=== PATIENT | female | born 1950 | race Caucasian/White ===

== ENCOUNTER 2024-04-13 16:45 | Inpatient (IN) ==
[2024-04-13] MEDS: dilTIAZem HCl 5 MG/ML 5 ML VIAL IV STA (17:22)
[2024-04-13] MEDS: SODIUM CHLORIDE 0.9% 1,000 ML IV ONE (17:22)
--- NOTE | 2024-04-13 17:22 | Emergency Department Note ---
Impression & Plan Atrial fibrillation with RVR ADMIT ED Provider Note HPI: History obtained from patient and grandson at the bedside. The patient is a 74-year-old female with history of atrial fibrillation, currently anticoagulated on Eliquis, presents the emergency department with a chief complaint of shortness of breath for the past 2 days. Patient states that she has been more fatigued recently, she states this occurs with minimal exertion. Patient states she does not have any chest pain but she does feel short of breath. On arrival here to the ED the patient's heart rate is elevated in the 160s and appears consistent with atrial fibrillation with RVR on the monitor. Patient states she does not think she took her morning medications. Patient is otherwise hemodynamically stable on arrival with blood pressure 150/91. ROS: - Per HPI Differential Diagnosis: Arrhythmia to include SVT, atrial fibrillation with RVR, WPW, ventricular tachycardia, ACS, PE, sepsis, amongst other potential pathologies. *Outpatient medications and allergy history reviewed. 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 Lab work shows no leukocytosis, hemoglobin is normal, platelet count is normal, CMP does not show any critical electrolyte abnormalities, glucose is elevated at 504 however there is no elevation of anion gap, serum bicarbonate level is normal, bilirubin is elevated at 1.6, AST is 168, ALT is 393, alk phos is elevated at 624. Patient does not have any abdominal pain, she denies any recent nausea or vomiting. BNP is also elevated at 578. Troponin is mildly elevated at 20.8 which I suspect is related to demand ischemia given tachycardia. Patient was given IV diltiazem and IV Lopressor with only minimal improvement in her heart rate into the 120s. Blood pressure remained stable. Patient was placed on IV diltiazem drip and given a second dose of Lopressor without much improvement in heart rate. She remains otherwise well-appearing on my reassessment, given her nonspecific transaminitis and elevated bilirubin CT imaging of the abdomen pelvis was obtained that shows evidence of hepatic steatosis without any acute surgical process. There also appears to be some developing cirrhosis. Chest x-ray per my interpretation shows nonspecific basilar opacity on the right side, patient's does exhibit a pattern of slight fluid overload and BNP is elevated at 578. Given diltiazem drip initiation with stable blood pressure I opted to avoid diuresis at this time as the patient has stable blood pressure and is saturating well on room air without increased work of breathing. I discussed all of the above findings with the patient and her son at the bedside. He is an RN and he expressed an understanding of the above. He did show me the patient's discharge paperwork from [facility] in January, at that time she did have a workup for transaminitis at that time that showed similar findings of hepatic steatosis. Doubt any other acute process that would be a surgical concern at this time. CT imaging does not suggest an acute cholecystitis, in addition, patient's Brennan sign is negative on exam. [facility] hospitalist service was consulted for admission. Patient's heart rate is in the 120s on my reassessment prior to admission, blood pressure remained stable, patient remains saturating well on room air. Case was discussed with the on-call admitting resident. Patient was placed for admission in stable condition. Consultants/Discussions held with other healthcare providers: -Hospitalist, Dr. Zaldivar Disposition discussion held by myself with: -Patient and grandson at bedside Critical care time: 45 minutes -Management of tachyarrhythmia/atrial fibrillation with RVR requiring initiation of IV rate control medications including diltiazem and metoprolol as well as diltiazem drip initiation, time spent at the bedside, interpretation of EKG and diagnostic studies, discussion with other physicians and arrangement of admission. Diagnosis: 1. Atrial fibrillation with RVR, acute 2. Transaminitis, acute on chronic 3. Hepatic steatosis on CT imaging 4. Elevated high-sensitivity troponin level 5. Elevated BNP Disposition: Admission Eleazar Knight DO Emergency Medicine Past Med/Surg History Problem List (Updated 04/13/24 @ 23:12 by Eleazar Knight DO) Atrial fibrillation with RVR (Acute) Atelectasis HLD (hyperlipidemia) Elevated troponin Transaminitis History of breast cancer HFrEF (heart failure with reduced ejection fraction) Atrial fibrillation with RVR DM2 (diabetes mellitus, type 2) Social History Smoking Status: Never smoker Preferred Language: Kinyarwanda Feels Safe at Home: Yes Allergies Allergies Allergy/AdvReac Type Severity Reaction Status Date / Time No Known Allergies Allergy Verified 04/13/24 17:43 Home Meds Home Medications Medication Instructions Recorded Confirmed Lactobacil.acidophilus-Bifido.animalis 1 cap PO DAILY 04/13/24 04/13/24 5 billion cell sprinkle capsule (Probiotic) albuterol sulfate 90 mcg/actuation 2 puff inhalation Q6H PRN Wheezing 04/13/24 04/13/24 aerosol inhaler amlodipine 5 mg tablet 5 mg PO QAM 04/13/24 04/13/24 apixaban 5 mg tablet (Eliquis) 5 mg PO BID 04/13/24 04/13/24 atorvastatin 10 mg tablet (Lipitor) 10 mg PO HS 04/13/24 04/13/24 digoxin 250 mcg (0.25 mg) tablet 250 mcg PO QAM 04/13/24 04/13/24 empagliflozin 25 mg tablet 25 mg PO QAM 04/13/24 04/13/24 (Jardiance) furosemide 40 mg tablet (Lasix) 40 mg PO QAM 04/13/24 04/13/24 glimepiride 4 mg tablet 4 mg PO QAM 04/13/24 04/13/24 lisinopril 20 mg tablet 20 mg PO QAM 04/13/24 04/13/24 metformin 500 mg tablet 500 mg PO BIDM 04/13/24 04/13/24 metoprolol succinate 100 mg 100 mg PO BID 04/13/24 04/13/24 tablet,extended release 24 hr paroxetine HCl 10 mg tablet (Paxil) 10 mg PO QAM 04/13/24 04/13/24 Results & Data (ED) Vital Signs Vital Signs - 24 hr 04/13/24 16:47 04/13/24 16:50 04/13/24 17:10 Temperature 36.0 C L Temperature Source Temporal Artery Scan Pulse Rate 131 H 156 H Pulse Rate from SpO2 Sensor Pulse Rhythm Regular Respiratory Rate 20 22 Respiratory Effort / Characteristics Non-Labored Spontaneous Respiratory Depth Normal Blood Pressure 150/91 H Blood Pressure Mean 110 Pulse Oximetry 95 98 Oxygen Delivery Method Room Air Room Air Room Air Sepsis Recent Fever Within 48 Hours No Sepsis New/Unexplained Change in Mental Status No Sepsis Action Taken by Nursing No Action Required Pulse Oximetry Post Tiitration 95 04/13/24 17:18 04/13/24 17:18 04/13/24 17:23 Temperature Temperature Source Pulse Rate 163 H 160 H 148 H Pulse Rate from SpO2 Sensor 144 H 146 H Pulse Rhythm Respiratory Rate 28 H 20 Respiratory Effort / Characteristics Respiratory Depth Blood Pressure 121/88 121/87 Blood Pressure Mean 99 94 Pulse Oximetry 92 96 Oxygen Delivery Method Room Air Sepsis Recent Fever Within 48 Hours Sepsis New/Unexplained Change in Mental Status Sepsis Action Taken by Nursing Pulse Oximetry Post Tiitration 04/13/24 17:51 04/13/24 17:56 04/13/24 19:00 Temperature Temperature Source Pulse Rate 153 H 146 H 126 H Pulse Rate from SpO2 Sensor 147 H 138 H Pulse Rhythm Respiratory Rate 20 24 Respiratory Effort / Characteristics Respiratory Depth Blood Pressure 129/97 129/97 137/104 H Blood Pressure Mean 107 115 Pulse Oximetry 93 94 Oxygen Delivery Method Room Air Sepsis Recent Fever Within 48 Hours Sepsis New/Unexplained Change in Mental Status Sepsis Action Taken by Nursing Pulse Oximetry Post Tiitration 04/13/24 19:51 04/13/24 20:30 04/13/24 21:02 Temperature Temperature Source Pulse Rate 139 H 124 H 140 H Pulse Rate from SpO2 Sensor 135 H 128 H Pulse Rhythm Respiratory Rate 30 H 22 Respiratory Effort / Characteristics Respiratory Depth Blood Pressure 140/101 H 163/125 H 141/107 H Blood Pressure Mean 114 137 Pulse Oximetry 94 96 Oxygen Delivery Method Room Air Room Air Sepsis Recent Fever Within 48 Hours Sepsis New/Unexplained Change in Mental Status Sepsis Action Taken by Nursing Pulse Oximetry Post Tiitration 04/13/24 21:33 05/31/24 21:34 04/13/24 22:00 Temperature Temperature Source Pulse Rate 115 H 122 H 130 H Pulse Rate from SpO2 Sensor 114 H 116 H Pulse Rhythm Respiratory Rate 22 27 H Respiratory Effort / Characteristics Respiratory Depth Blood Pressure 117/82 112/94 Blood Pressure Mean 93 100 Pulse Oximetry 96 95 Oxygen Delivery Method Sepsis Recent Fever Within 48 Hours Sepsis New/Unexplained Change in Mental Status Sepsis Action Taken by Nursing Pulse Oximetry Post Tiitration 04/13/24 22:18 04/13/24 22:30 Temperature Temperature Source Pulse Rate 127 H 130 H Pulse Rate from SpO2 Sensor 114 H Pulse Rhythm Respiratory Rate 22 Respiratory Effort / Characteristics Respiratory Depth Blood Pressure 112/94 122/101 H Blood Pressure Mean 108 Pulse Oximetry 94 Oxygen Delivery Method Room Air Sepsis Recent Fever Within 48 Hours Sepsis New/Unexplained Change in Mental Status Sepsis Action Taken by Nursing Pulse Oximetry Post Tiitration Laboratory Data 04/13/24 17:20 04/13/24 17:20 Lab Results 04/13/24 04/13/24 04/13/24 Range/Units 17:20 20:04 20:06 WBC 7.59 (4.8-10.8) K/ul RBC 4.60 (4.20-5.40) M/uL Hgb 14.6 (12.0-16.0) g/dl Hct 44.6 (37.0-47.0) % MCV 97.0 (80.0-100.0) fL MCH 31.7 (25.0-34.0) pg MCHC 32.7 (32.0-36.0) g/dL RDW Std Deviation 62.3 H (36.4-46.3) fL RDW Coeff of Will 17.8 H (11.5-14.5) % Plt Count 299 (130-400) K/uL MPV 11.1 (9.4-12.4) fL Immature Gran % (Auto) 0.7 % Neut % (Auto) 73.2 % Lymph % (Auto) 14.1 % [place] % (Auto) 11.1 % Eos % (Auto) 0.5 % Baso % (Auto) 0.4 % Neut # (Auto) 5.56 (1.40-6.50) K/uL Lymph # (Auto) 1.07 L (1.20-3.40) K/uL [place] # (Auto) 0.84 H (0.11-0.59) K/uL Eos # (Auto) 0.04 (0.00-0.50) K/uL Baso # (Auto) 0.03 (0.00-0.20) K/uL Immature Gran # (Auto) 0.05 (0.01-0.20) K/uL PT 12.1 H (9.0-12.0) Seconds INR 1.1 (0.9-1.1) APTT 24 (21-31) Seconds PTT Ratio 0.9 Sodium 134 L (136-145) mmol/L Potassium 4.1 (3.5-5.1) mmol/L Chloride 100 (98-107) mmol/L Carbon Dioxide 24 (21-32) mmol/L Anion Gap 10 (3-11) BUN 17 (6-23) mg/dl Creatinine 0.90 (0.6-1.2) mg/dl Est Cr Clr Drug Dosing 61.4 ml/min Est GFR ( Amer) 73.5 ml/min Est GFR (Non-Af Amer) 63.4 ml/min BUN/Creatinine Ratio 18.9 (10-20) Glucose 504 H* (70-99(Fasting)) mg/dl POC Glucose 394 H* (70-99) mg/dl Calcium 8.7 (8.6-10.3) mg/dl Magnesium 2.0 (1.7-2.4) mg/dl Total Bilirubin 1.6 H (0.2-1.0) mg/dl AST 168 H (13-39) U/L ALT 393 H (7-52) U/L Alkaline Phosphatase 624 H (34-104) U/L Troponin I High Sens 20.8 H 19.7 H (0-14) pg/ml B-Natriuretic Peptide 578 H (0-100) pg/ml Total Protein 6.3 (6.0-8.3) gm/dl Albumin 3.6 (3.4-5.0) gm/dl Globulin 2.7 (2.5-4.0) gm/dl Albumin/Globulin Ratio 1.3 (0.9-2) TSH 3.845 (0.300-4.500) uIu/ml 04/13/24 Range/Units 22:27 WBC (4.8-10.8) K/ul RBC (4.20-5.40) M/uL Hgb (12.0-16.0) g/dl Hct (37.0-47.0) % MCV (80.0-100.0) fL MCH (25.0-34.0) pg MCHC (32.0-36.0) g/dL RDW Std Deviation (36.4-46.3) fL RDW Coeff of Will (11.5-14.5) % Plt Count (130-400) K/uL MPV (9.4-12.4) fL Immature Gran % (Auto) % Neut % (Auto) % Lymph % (Auto) % [place] % (Auto) % Eos % (Auto) % Baso % (Auto) % Neut # (Auto) (1.40-6.50) K/uL Lymph # (Auto) (1.20-3.40) K/uL [place] # (Auto) (0.11-0.59) K/uL Eos # (Auto) (0.00-0.50) K/uL Baso # (Auto) (0.00-0.20) K/uL Immature Gran # (Auto) (0.01-0.20) K/uL PT (9.0-12.0) Seconds INR (0.9-1.1) APTT (21-31) Seconds PTT Ratio Sodium (136-145) mmol/L Potassium (3.5-5.1) mmol/L Chloride (98-107) mmol/L Carbon Dioxide (21-32) mmol/L Anion Gap (3-11) BUN (6-23) mg/dl Creatinine (0.6-1.2) mg/dl Est Cr Clr Drug Dosing ml/min Est GFR ( Amer) ml/min Est GFR (Non-Af Amer) ml/min BUN/Creatinine Ratio (10-20) Glucose (70-99(Fasting)) mg/dl POC Glucose 279 H (70-99) mg/dl Calcium (8.6-10.3) mg/dl Magnesium (1.7-2.4) mg/dl Total Bilirubin (0.2-1.0) mg/dl AST (13-39) U/L ALT (7-52) U/L Alkaline Phosphatase (34-104) U/L Troponin I High Sens (0-14) pg/ml B-Natriuretic Peptide (0-100) pg/ml Total Protein (6.0-8.3) gm/dl Albumin (3.4-5.0) gm/dl Globulin (2.5-4.0) gm/dl Albumin/Globulin Ratio (0.9-2) TSH (0.300-4.500) uIu/ml Administered Medications Diltiazem HCl 125 mg/ Dextrose 125 mls @ 10 mls/hr IV .[id number] MARNIE; Protocol Stop: 05/13/24 17:44 Last Titration: 04/13/24 23:01 Dose: 10 mg/hr, 10 mls/hr Documented By: INGE Co-signed By: NIC Titration: 04/13/24 19:15 Dose: 15 mg/hr, 15 mls/hr Documented By: INGE Co-signed By: THOM Titration: 04/13/24 18:50 Dose: 10 mg/hr, 10 mls/hr Documented By: INGE Co-signed By: THOM Admin: 04/13/24 17:56 Dose: 5 mg/hr, 5 mls/hr Documented By: PRECIOUS Co-signed By: INGE Discontinued Medications Diltiazem HCl (Diltiazem Hcl 5 Mg/Ml 5 Ml Vial) Confirm Administered Dose 25 mg IV .STK-MED ONE Stop: 04/13/24 17:21 Last Admin: 04/13/24 17:24 Dose: Not Given Documented By: INGE Diltiazem HCl (Diltiazem Hcl 5 Mg/Ml 5 Ml Vial) 10 mg IV NOW STA Stop: 04/13/24 17:23 Last Admin: 04/13/24 17:22 Dose: 10 mg Documented By: INGE Co-signed By: PRECIOUS Sodium Chloride (Nss) 1,000 mls @ 999 mls/hr IV .Q1H1M ONE Stop: 04/13/24 18:12 Last Infusion: 04/13/24 19:27 Dose: Infused Documented By: Admin: 04/13/24 17:22 Dose: 999 mls/hr Documented By: INGE Insulin Human Regular (Novolin-R Insulin Per Unit Charge) 8 units IV NOW STA Stop: 04/13/24 20:01 Last Admin: 04/13/24 20:10 Dose: 8 units Documented By: INGE Co-signed By: PAVAN Ioversol (Optiray 320 100ml) 92 ml IV ONCE ONE Stop: 04/13/24 19:41 Last Admin: 04/13/24 19:42 Dose: 92 ml Documented By: YOBANY Metoprolol Tartrate (Metoprolol Tartrate 1 Mg/Ml Vial) 5 mg IV NOW STA Stop: 04/13/24 17:33 Last Admin: 04/13/24 17:56 Dose: 5 mg Documented By: PRECIOUS Metoprolol Tartrate (Metoprolol Tartrate 1 Mg/Ml Vial) 5 mg IV NOW STA Stop: 04/13/24 20:42 Last Admin: 04/13/24 21:02 Dose: 5 mg Documented By: INGE Miscellaneous (Stat Iv Infusion Titration Per Protocol) 1 each N/A NOW STA Stop: 04/13/24 17:33 Last Admin: 04/13/24 18:27 Dose: Not Given Documented By: INGE Imaging Data Radiologist's Impression: Chest X-Ray 04/13/24 16:51 XR chest 1V not portable CLINICAL HISTORY: Chest pain, nonspecific COMPARISON STUDY: No previous studies for comparison. FINDINGS: There are left axillary surgical clips. No pneumothorax or pleural effusion is present. Bilateral hilar prominence is likely due to pulmonary vessels. Patient is mildly rotated. Cardiac size is within normal limits. There is no evidence for pulmonary edema. Linear left midlung density favors atelectasis. Possible hiatal hernia. There is hazy right basilar opacity. IMPRESSION: 1. Hazy right basilar opacity. This may reflect pneumonia or atelectasis. Radiographic follow-up to ensure resolution is recommended. 2. Possible hiatal hernia. 3. Bilateral hilar prominence likely due to pulmonary vessels. This can be assessed on follow-up chest radiographs. ACT 112: Negative or not required by law. Electronically signed by: Brian Gamez M.D. 04/13/2024 6:08 PM Abdomen/Pelvis CT 04/13/24 19:10 Exam(s): CT ABDOMEN + PELVIS With Contrast IV Amt: 92 ml optiray 320 EXAM: CT Abdomen and Pelvis With Intravenous Contrast CLINICAL HISTORY: Reason for exam: Transaminitis, elevated bilirubin. TECHNIQUE: Axial computed tomography images of the abdomen and pelvis with intravenous contrast. CTDI is 27.53 mGy and DLP is 1227.03 mGy-cm. Automated exposure control was utilized for the study. A dose lowering technique was utilized adhering to the principles of ALARA. CONTRAST: Patient received 92 ml optiray 320 of IV contrast COMPARISON: None FINDINGS: Lung bases: Mild dependent atelectasis bilaterally. Pleural space: Small bilateral pleural effusions. ABDOMEN: Liver: Hepatic steatosis. Hepatomegaly. Nodular contour of the liver may represent cirrhosis. Gallbladder and bile ducts: Unremarkable. No calcified stones. No ductal dilation. Pancreas: Unremarkable. No mass. No ductal dilation. Spleen: Small splenule. Adrenals: Unremarkable. No mass. Kidneys and ureters: Probable peripelvic cysts bilaterally. No significant hydroureter or ureteral stone. Stomach and bowel: Mild diverticulosis without evidence of diverticulitis. No obstruction. PELVIS: Appendix: Normal appendix. Bladder: Unremarkable. No mass. Reproductive: Unremarkable as visualized. ABDOMEN and PELVIS: Intraperitoneal space: Small amount of ascites. No free air. Bones/joints: Degenerative changes of the spine. No acute fracture. No dislocation. Soft tissues: Body wall edema. Small fluid-containing umbilical hernia. Vasculature: Atherosclerotic changes of the vasculature. No aortic aneurysm or dissection. 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 Mild to moderate stenosis at the origin of the SMA. Lymph nodes: Unremarkable. No enlarged lymph nodes. IMPRESSION: 1. Body wall edema. 2. Small amount of ascites. 3. Small bilateral pleural effusions. 4. Hepatic steatosis. Hepatomegaly. Nodular contour of the liver may represent cirrhosis. 5. Probable peripelvic cysts bilaterally. No significant hydroureter or ureteral stone. Electronically signed by: Penny Daley M.D. 04/13/24 20:31 PM Discharge Plan Visit Data Chief Complaint: Shortness of Breath/Dyspnea Stated Complaint: A-FIB, POSSIBLE HEART FAILURE, SOB, FATIGUE ED Provider: Eleazar Knight Discharge Problem: Atrial fibrillation with RVR Forms [facility] Prescriptions Prescriptions: No Action furosemide [Lasix] 40 mg Tablet 40 mg PO QAM metformin 500 mg Tablet 500 mg PO BIDM paroxetine HCl [Paxil] 10 mg Tablet 10 mg PO QAM atorvastatin [Lipitor] 10 mg Tablet 10 mg PO HS lisinopril 20 mg Tablet 20 mg PO QAM metoprolol succinate 100 mg Tablet Extended Release 24 Hr 100 mg PO BID amlodipine 5 mg Tablet 5 mg PO QAM digoxin 250 mcg (0.25 mg) Tablet 250 mcg PO QAM glimepiride 4 mg Tablet 4 mg PO QAM Rx Instructions: administer with breakfast albuterol sulfate 90 mcg/actuation Hfa Aerosol Inhaler 2 puff INHALATION Q6H PRN (Reason: Wheezing) Eliquis 5 mg Tablet 5 mg PO BID Probiotic 5 billion cell Capsule, Sprinkle 1 cap PO DAILY Jardiance 25 mg Tablet 25 mg PO QAM Referrals Referrals: PCP,NO [Physician] -
[2024-04-13] MEDS: dilTIAZem HCl 5 MG/ML 5 ML VIAL IV ONE (17:24)
[2024-04-13 17:50] LABS: Basophils # (auto) 0.03 K/uL (0.00-0.20); Basophils % (auto) 0.4 %; Eosinophils # (auto) 0.04 K/uL (0.00-0.50); Eosinophils % (auto) 0.5 %; Hematocrit (blood only) 44.6 % (37.0-47.0); Hemoglobin 14.6 g/dl (12.0-16.0); Immature Granulocytes # (auto) 0.05 K/uL (0.01-0.20); Immature Granulocytes % (auto) 0.7 %; Lymphocytes # (auto) 1.07 K/uL (1.20-3.40); Lymphocytes % (auto) 14.1 %; Mean Corpuscular Hemoglobin 31.7 pg (25.0-34.0); Mean Corpuscular Hgb Conc 32.7 g/dL (32.0-36.0); Mean Platelet Volume 11.1 fL (9.4-12.4); Monocytes # (auto) 0.84 K/uL (0.11-0.59); Monocytes % (auto) 11.1 %; Neutrophils # (auto) 5.56 K/uL (1.40-6.50); Neutrophils % (auto) 73.2 %; Platelet Count 299 K/uL (130-400); RDW Coefficient of Variation 17.8 % (11.5-14.5); RDW Standard Deviation 62.3 fL (36.4-46.3); White Blood Count 7.59 K/ul (4.8-10.8)
[2024-04-13] MEDS: dilTIAZem HCL 125 MG in DEXTROSE 5% 100 ML IV SCH (17:56)
[2024-04-13] MEDS: METOPROLOL TARTRATE 1 MG/ML VIAL IV STA ×2 (17:56→21:02)
--- NOTE | 2024-04-13 18:09 | XRay Report ---
XR chest 1V not portable CLINICAL HISTORY: Chest pain, nonspecific COMPARISON STUDY: No previous studies for comparison. FINDINGS: There are left axillary surgical clips. No pneumothorax or pleural effusion is present. Demetris ateral hilar prominence is likely due to pulmonary vessels. Patient is mildly rotated. Cardiac size i s within normal limits. There is no evidence for pulmonary edema. Linear left midlung density favors atelectasis. Possible hiatal hernia. There is hazy right basilar opacity. IMPRESSION: 1. Hazy right basilar opacity. This may reflect pneumonia or atelectasis. Radiographic follow-up to e nsure resolution is recommended. 2. Possible hiatal hernia. 3. Bilateral hilar prominence likely due to pulmonary vessels. This can be assessed on follow-up ches t radiographs. ACT 112: Negative or not required by law. Electronically signed by: Brian Gamez M.D. 04/13/2024 6:08 PM
[2024-04-13 18:14] LABS: INR 1.1 (0.9-1.1); Partial Thromboplastin Ratio 0.9; Partial Thromboplastin Time 24 Seconds (21-31); Prothrombin Time 12.1 Seconds (9.0-12.0)
[2024-04-13 18:25] LABS: Albumin Globulin Ratio 1.3 (0.9-2); Albumin Level 3.6 gm/dl (3.4-5.0); BUN Creatinine Ratio 18.9 (10-20); Bilirubin,Total 1.6 mg/dl (0.2-1.0); Calcium 8.7 mg/dl (8.6-10.3); Creatinine Clr Calc Pharmacy 61.4 ml/min; Est GFR (African American) 73.5 ml/min; Est GFR (Non-African American) 63.4 ml/min; Globulin 2.7 gm/dl (2.5-4.0); Potassium 4.1 mmol/L (3.5-5.1); Total Protein 6.3 gm/dl (6.0-8.3); Troponin I High Sensitivity 20.8 pg/ml (0-14)
[2024-04-13] MEDS: STAT IV Infusion **Titration per Protocol STA (18:27)
[2024-04-13 18:28] LABS: Thyroid Stimulating Hormone 3.845 uIu/ml (0.300-4.500)
[2024-04-13] MEDS: OPTIRAY 320 100ml IV ONE (19:42)
[2024-04-13] MEDS: NovoLIN-R INSULIN PER UNIT CHARGE IV STA (20:10)
--- NOTE | 2024-04-13 20:31 | CT Scan Report ---
Exam(s): CT ABDOMEN + PELVIS With Contrast IV Amt: 92 ml optiray 320 EXAM: CT Abdomen and Pelvis With Intravenous Contrast CLINICAL HISTORY: Reason for exam: Transaminitis, elevated bilirubin. TECHNIQUE: Axial computed tomography images of the abdomen and pelvis with intravenous contrast. CTDI is 27.53 mGy and DLP is 1227.03 mGy-cm. Automated exposure control was utilized for the study. A dose lowering technique was utilized adhering to the principles of ALARA. CONTRAST: Patient received 92 ml optiray 320 of IV contrast COMPARISON: None FINDINGS: Lung bases: Mild dependent atelectasis bilaterally. Pleural space: Small bilateral pleural effusions. ABDOMEN: Liver: Hepatic steatosis. Hepatomegaly. Nodular contour of the liver may represent cirrhosis. Gallbladder and bile ducts: Unremarkable. No calcified stones. No ductal dilation. Pancreas: Unremarkable. No mass. No ductal dilation. Spleen: Small splenule. Adrenals: Unremarkable. No mass. Kidneys and ureters: Probable peripelvic cysts bilaterally. No significant hydroureter or ureteral stone. Stomach and bowel: Mild diverticulosis without evidence of diverticulitis. No obstruction. PELVIS: Appendix: Normal appendix. Bladder: Unremarkable. No mass. Reproductive: Unremarkable as visualized. ABDOMEN and PELVIS: Intraperitoneal space: Small amount of ascites. No free air. Bones/joints: Degenerative changes of the spine. No acute fracture. No dislocation. Soft tissues: Body wall edema. Small fluid-containing umbilical hernia. Vasculature: Atherosclerotic changes of the vasculature. No aortic aneurysm or dissection. 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 Mild to moderate stenosis at the origin of the SMA. Lymph nodes: Unremarkable. No enlarged lymph nodes. IMPRESSION: 1. Body wall edema. 2. Small amount of ascites. 3. Small bilateral pleural effusions. 4. Hepatic steatosis. Hepatomegaly. Nodular contour of the liver may represent cirrhosis. 5. Probable peripelvic cysts bilaterally. No significant hydroureter or ureteral stone. Electronically signed by: Penny Daley M.D. 04/13/24 20:31 PM
--- NOTE | 2024-04-13 21:34 | History & Physical Report ---
Date of Service April 13, 2024 Assessment & Plan (1) Atrial fibrillation with RVR: Plan: - Afib with RVR with rates in the 160s on presentation - On Cardizem gtt with rates still in 120s/130s plan to transition to amiodarone gtt - hold amlodipine, lisinopril - continue digoxin, check level - continue metoprolol - continue Eliquis (2) HFrEF (heart failure with reduced ejection fraction): Plan: - Echo from 01/2024 initially with EF 30-35%. Repeat after improvement in hearts rates with EF= 40-45%, LA thickening - Plan to repeat TTE - elevated BNP -hold lisinopril as per above - continue metoprolol, Jardiance - Pleural effusions on CT; plan for diurese with IV Lasix once HRs controlled and BPs can handle (3) DM2 (diabetes mellitus, type 2): Plan: - hemoglobin a1c= 11 01/2024; repeat - hold glimepiride, metformin - continue Jardiance - SSI while IP (4) Transaminitis: Plan: - transaminitis noted during admission 01/2024 at [facility]; AST= 31, ALT= 108, Alk Phos= 176, T Bili= 1 - On admission AST= 168, ALT= 393, Alk Phos= 624, t bili= 1.6 - CT A&P with Hepatic steatosis. Hepatomegaly. Nodular contour of the liver may represent cirrhosis - ggt pending (5) Elevated troponin: Plan: - troponin 20-> 19 - asymptomatic and without ischemic changes on EKG - likely demand ischemia (6) HLD (hyperlipidemia): Plan: - continue statin, repeat lipid panel (7) Atelectasis: Plan: - CXR with concern for opacity - CT with mild depended atelectasis/small B/L pleural effusions - incentive spirometry - pro leonid pending, no signs of acute infection defer antibiotics at present Plan Diet: DM2, Heart Healthy Dispo: PCU Code: FUll VTE Prophylaxis: Eliquis History of Present Illness Primary Care Provider: Leno Murillo PA-C 74 year old female with a past medical history of breast cancer (completed treatment 11/2023), paroxysmal afib, DM2 presenting with afib with RVR. Noted increased dyspnea over the past 2 days. Son noted LE edema yesterday. Denies chest pain, nausea/vomiting. Notes that she believes that she forgot to take her medications this morning. Admitted at [facility] for afib with RVR. Was started on IV Lopressor and Cardizem gtt, unsuccessful in controlling rates. DCCV x 4, briefly converted to NSR but then back to afib RVR. Started on amiodarone gtt and converted to oral dosing. Adding digoxin and metoprolol. Echo initially with EF 30-35%. Repeat after improvement in hearts rates with EF= 40-45%, LA thickening and recommenced OP cardiac MRI to r/u amyloidosis. Ultimately she was discharged on: a tapering dose of amiodarone 400mg BID x 2 weeks, 200mg BID x 2 weeks, 200mg daily there forward. Digoxin 250mcg daily. Metoprolol succinate 100mg BID. Eliquis 5mg BID. Is supposed to f/u with Dr. Rosas, EP as an OP for consideration of ablation. In the ED: Was given 5mg IV Lopressor x 2, Cardizem 10mg and started on Cardizem gtt. Allergies Allergy/AdvReac Type Severity Reaction Status Date / Time No Known Allergies Allergy Verified 04/13/24 17:43 Home Medications Medication Instructions Recorded Confirmed Type Lactobacil.acidophilus-Bifido.animalis 1 cap PO DAILY 04/13/24 04/13/24 History 5 billion cell sprinkle capsule (Probiotic) albuterol sulfate 90 mcg/actuation 2 puff inhalation Q6H PRN Wheezing 04/13/24 04/13/24 History aerosol inhaler amlodipine 5 mg tablet 5 mg PO QAM 04/13/24 04/13/24 History apixaban 5 mg tablet (Eliquis) 5 mg PO BID 04/13/24 04/13/24 History atorvastatin 10 mg tablet (Lipitor) 10 mg PO HS 04/13/24 04/13/24 History digoxin 250 mcg (0.25 mg) tablet 250 mcg PO QAM 04/13/24 04/13/24 History empagliflozin 25 mg tablet 25 mg PO QAM 04/13/24 04/13/24 History (Jardiance) furosemide 40 mg tablet (Lasix) 40 mg PO QAM 04/13/24 04/13/24 History glimepiride 4 mg tablet 4 mg PO QAM 04/13/24 04/13/24 History lisinopril 20 mg tablet 20 mg PO QAM 04/13/24 04/13/24 History metformin 500 mg tablet 500 mg PO BIDM 04/13/24 04/13/24 History metoprolol succinate 100 mg 100 mg PO BID 04/13/24 04/13/24 History tablet,extended release 24 hr paroxetine HCl 10 mg tablet (Paxil) 10 mg PO QAM 04/13/24 04/13/24 History Past Med/Surg History Problem List (Updated 04/13/24 @ 23:12 by Eleazar Knight, DO) Atrial fibrillation with RVR (Acute) Atelectasis HLD (hyperlipidemia) Elevated troponin Transaminitis History of breast cancer HFrEF (heart failure with reduced ejection fraction) Atrial fibrillation with RVR DM2 (diabetes mellitus, type 2) Social History Smoking Status: Never smoker Hx Alcohol Use: Yes Hx Substance Use: No Preferred Language: Azerbaijani Communication Ability: Effective Manager Primary Care Required: No Beliefs That Will Affect Care: None Current Living Situation: Alone Feels Safe at Home: Yes Review of Systems Review of Systems: As per above Physical Exam Physical Exam: Constitutional: well-appearing, no acute distress HEENT: NCAT, no conjunctival injection CV: irregular rate and rhythm, no murmur appreciated, extremities well-perfused, no LE edema Resp: CTABL, no wheezes/rales/rhonchi appreciated, no increased work of breathing GI: soft, nondistended, nontender MSK: no gross deformities appreciated Skin: warm, dry, no rash appreciated Neuro: alert, oriented, no focal neurologic deficit appreciated Results & Data Results & Data Vital Signs (Past 12 Hours) Vital Signs Temp Pulse Resp BP Pulse Ox O2 Del Method 04/13/24 21:02 140 H 141/107 H 04/13/24 20:30 124 H 22 163/125 H 96 Room Air 04/13/24 19:51 139 H 30 H 140/101 H 94 Room Air 04/13/24 19:00 126 H 24 137/104 H 94 Room Air 04/13/24 17:56 146 H 129/97 04/13/24 17:51 153 H 20 129/97 93 04/13/24 17:23 148 H 20 121/87 96 04/13/24 17:18 160 H 28 H 121/88 92 Room Air 04/13/24 17:18 163 H 04/13/24 17:10 156 H 22 98 Room Air 04/13/24 16:50 Room Air 04/13/24 16:47 36.0 C L 131 H 20 150/91 H 95 Room Air Code Status & VTE Plan VTE Prophylaxis Plan VTE Prophylaxis will be ordered: Yes Supervising Physician Co-Signing Physician Notes Attending addendum: I have physically seen this patient, have supervised the medical residents activities, and agree with the H&P unless as otherwise noted. Assessment and Plan: Atrial fibrillation with RVR/HFpEF The patient will be admitted to telemetry for serial cardiac enzymes, serial EKG's, cardiac rhythm monitoring and a 2-D echocardiogram with Dopplers. Initial heart rate in the 160s Maximum improvement on the Cardizem drip begun by the ED in the 120s-130s Patient will be converted to amiodarone bolus/drip per protocol Continue digoxin, add dig level to labs Continue metoprolol and Eliquis Hold amlodipine and lisinopril Continue Jardiance IV furosemide as noted Diabetes mellitus- Uncontrolled Hold glimepiride and metformin while inpatient Continue Jardiance Placed on Accu-Cheks with NovoLog SSI Transaminitis- Worsened from recent laboratories of 02/04 at [facility] May be secondary to poor diabetic control and/or hepatic congestion CT abdomen pelvis with hepatic steatosis, hepatomegaly and nodular contour of liver suggestive of cirrhosis Continue to monitor liver function test daily Resident Activity Tracking Resident Involvement: Resident Care Provided Care Provided: Adult Hospital Medicine
[2024-04-13] MEDS ORDERED: AMIODARONE IV BOLUS & DRIP IV STA (23:01)
[2024-04-13] MEDS ORDERED: STAT IV Infusion **Titration per Protocol STA (23:01)
[2024-04-13] MEDS ORDERED: 0.2 MICRON FILTER SET 1 EACH IV STA (23:01)
[2024-04-14] MEDS: AMIODARONE / D5W 150 MG/100 ML BAG IV STA ×2 (00:20→05:25)
[2024-04-14] MEDS: AMIODARONE / D5W 360 MG/200 ML BAG IV ONE (00:35)
[2024-04-14] MEDS ORDERED: ALBUTEROL HFA 8 GM INHALER INH PRN (02:26)
[2024-04-14] MEDS ORDERED: GLUCAGON FOR INJ 1 MG VIAL SQ PRN (02:26)
[2024-04-14] MEDS ORDERED: DEXTROSE 50% 50 ML SYRINGE IV PRN (02:26)
[2024-04-14] MEDS ORDERED: GLUCOSE 10 TAB/TUBE PO PRN (02:26)
[2024-04-14] MEDS ORDERED: GLUCOSE 40% GEL 15 GM TUBE PO PRN (02:26)
[2024-04-14] MEDS ORDERED: CARBOHYDRATES FOR HYPOGLYCEMIA PO PRN (02:26)
[2024-04-14] MEDS: APIXABAN 5 MG TABLET PO SCH (04:39)
[2024-04-14] MEDS ORDERED: 0.2 MICRON FILTER SET 1 EACH IV ONE (04:49)
[2024-04-14] MEDS: INSULIN ASPART PER UNIT CHARGE SC SCH (05:16)
[2024-04-14] MEDS: AMIODARONE / D5W 360 MG/200 ML BAG IV SCH (06:49)
[2024-04-14 07:50] LABS: Estimated Average Glucose 301 mg/dl; Hemoglobin A1C 12.1 % (4.5-5.6)
[2024-04-14 08:29] LABS: Hematocrit (blood only) 42.4 % (37.0-47.0); Hemoglobin 13.9 g/dl (12.0-16.0); Mean Corpuscular Hgb Conc 32.8 g/dL (32.0-36.0); Mean Corpuscular Volume 97.7 fL (80.0-100.0); Mean Platelet Volume 11.5 fL (9.4-12.4); Platelet Count 236 K/uL (130-400); RDW Standard Deviation 63.7 fL (36.4-46.3); Red Blood Count 4.34 M/uL (4.20-5.40); White Blood Count 7.76 K/ul (4.8-10.8)
[2024-04-14 08:33] LABS: Basophils # (auto) 0.03 K/uL (0.00-0.20); Basophils % (auto) 0.4 %; Eosinophils # (auto) 0.07 K/uL (0.00-0.50); Eosinophils % (auto) 0.9 %; Immature Granulocytes # (auto) 0.07 K/uL (0.01-0.20); Immature Granulocytes % (auto) 0.9 %; Lymphocytes # (auto) 1.23 K/uL (1.20-3.40); Lymphocytes % (auto) 15.9 %; Monocytes # (auto) 0.92 K/uL (0.11-0.59); Monocytes % (auto) 11.9 %; Neutrophils # (auto) 5.44 K/uL (1.40-6.50); Platelet Estimate Normal (Normal)
[2024-04-14 08:55] LABS: Calcium 8.3 mg/dl (8.6-10.3); Potassium 3.6 mmol/L (3.5-5.1)
[2024-04-14 09:00] LABS: Albumin Level 3.3 gm/dl (3.4-5.0); Bilirubin,Total 1.2 mg/dl (0.2-1.0)
[2024-04-14 09:11] LABS: Albumin Globulin Ratio 1.3 (0.9-2); BUN Creatinine Ratio 23.9 (10-20); Chol HDL Ratio 3.5 (0-5); Creatinine Clr Calc Pharmacy 77.9 ml/min; Est GFR (African American) 97.9 ml/min; Est GFR (Non-African American) 84.5 ml/min; Globulin 2.5 gm/dl (2.5-4.0); Total Protein 5.8 gm/dl (6.0-8.3)
[2024-04-14] MEDS: PARoxetine HCL 10 MG TAB PO SCH (09:28)
[2024-04-14] MEDS: EMPAGLIFLOZIN 25 MG TAB PO SCH (09:28)
[2024-04-14] MEDS: METOPROLOL SUCC 50MG EXT REL TAB PO SCH (09:28)
--- NOTE | 2024-04-14 12:44 | Cardiology Consultation ---
Date of Consultation April 14, 2024 Assessment & Plan (1) Atrial fibrillation with RVR: (2) HFrEF (heart failure with reduced ejection fraction): (3) Elevated troponin: (4) Cardiomyopathy: (5) Mitral regurgitation: Plan ASSESSMENT/PLAN: 1. Atrial fibrillation with rapid ventricular response: Persistent. Reverted to A-fib rather quickly after DC cardioversion x 4 at [facility]. Apparently was rate controlled with amiodarone, digoxin, and beta-aundrea but amiodarone since discontinued by PCP according to family. Agree with amiodarone currently and continuation of beta-aundrea and digoxin. Given undetectable digoxin level, wonder if she was taking medications appropriately as she does not recall her medications and has poor memory. Recommend that she follow-up with her gis analyst as A-fib ablation was being considered. Continue anticoagulation for stroke risk reduction. Will try to adequately rate control her atrial fibrillation in the meantime with current regimen. 2. Chronic heart failure with reduced EF: She appears hypervolemic. Lasix 40 mg IV x 1 was ordered this afternoon. 40 mg Lasix IV daily. Try to maintain net negative fluid balance. Low-sodium diet. Strict I's and O's while hospitalized. Daily weights. Continue SGLT2 inhibitor. Lisinopril was held on presentation. Recommend Entresto sometime after 36 hours from most recent lisinopril dose. Recommend spironolactone. Continue metoprolol succinate. 3. Cardiomyopathy: May be related to tachycardia given recent issues with uncontrolled A-fib with RVR. Will attempt to achieve rate control. Admitting records document that she is to undergo cardiac MRI to evaluate for amyloidosis through her primary electrician rectifier maintenance. If LV systolic function does not improve above 35% EF on optimal medical therapy and rate control (after 3 months of therapy), consider ICD for primary prevention. 4. Mitral regurgitation: Moderate. Monitor over time. 5. Elevated troponin: Likely due to demand ischemia in the setting of A-fib with RVR and heart failure. Peak troponin was 20.8. She did not present with acute coronary syndrome. Management as above. 6. Type 2 diabetes: Poorly controlled. Management as per primary hospitalist service. 7. Disposition: Cardiology will continue to follow along. Recommend close follow-up on discharge with her primary electrician rectifier maintenance/gis analyst at [facility]. Patient care communicated with primary hospitalist, Dr. Tavarez. Highly complex medical issues. Thank you for allowing me to participate in the care of your patient. Please call for any other questions or concerns. Sincerely, Newton Mehta M.D. History of Present Illness Reason for Consultation: Atrial fibrillation with RVR Requesting Physician: Unique Tavarez MD Attending Physician: nUique Tavarez MD History of Present Illness Ms. Gonsalez is a very pleasant 74-year-old female with a history significant for atrial fibrillation, cardiomyopathy, dyslipidemia, heart failure with reduced EF, uncontrolled type 2 diabetes (pt denies but A1c 12.1 on 04/14/24), and recurrent breast cancer (initially diagnosed in 2012 s/p lumpectomy and then recurrent in 2023 with XRT and chemotherapy). Her primary electrician rectifier maintenance is with [facility]. She is a poor historian and does not recall many details. She admits that she does not know her medications. She does not recall being seen by cardiology with [facility]. She gave permission for me to contact her son, German, who is a nurse in the [employer] at [employer]. She was admitted in January 2024 in [place] for approximately 1 week per her son. She was found to be in atrial fibrillation with rapid ventricular response and underwent cardioversion on 4 separate occasions. Each time, she would revert to atrial fibrillation. Apparently 1 cardioversion was performed while on amiodarone but she still reverted to atrial fibrillation. They initially used beta-aundrea and diltiazem and then eventually amiodarone drip, digoxin, a nd beta-aundrea. When she was discharged, German stated today that she was in a rate controlled atrial fibrillation. The plan was to meet with Dr. Rosas () for atrial fibrillation ablation consideration. German states that while at home, she maintained beta-aundrea and digoxin but her PCP discontinued amiodarone approximately 1 month ago. He noted that she had lower extremity edema and brought her to [facility] on 04/13/2024 for further care. She was noted to be in A-fib with RVR. Her heart rate was reportedly in the 160s on presentation. In the ER, she was given intravenous metoprolol and diltiazem drip. Diltiazem was replaced with amiodarone. Amlodipine and lisinopril were held. She recalls "retaining water" in her abdomen and right leg. She denies shortness of breath, orthopnea, syncope, near syncope, palpitations, chest pain, melena, hematochezia, or hematuria. Review of systems: As above. Review of systems otherwise negative/unremarkable. Family history: Mother and father had heart issues but she does not recall details. Social history: She denies smoking. Occasional alcohol. No drugs. Lives a lone. Has 2 sons, 1 that lives 2 doors down ([facility] nurse at [employer]) and 1 that lives in [place]. She is . She was alone in her hospital room. Allergies Allergy/AdvReac Type Severity Reaction Status Date / Time No Known Allergies Allergy Verified 04/13/24 17:43 Home Medications Medication Instructions Recorded Confirmed Type Lactobacil.acidophilus-Bifido.animalis 1 cap PO DAILY 04/13/24 04/13/24 History 5 billion cell sprinkle capsule (Probiotic) albuterol sulfate 90 mcg/actuation 2 puff inhalation Q6H PRN Wheezing 04/13/24 04/13/24 History aerosol inhaler amlodipine 5 mg tablet 5 mg PO QAM 04/13/24 04/13/24 History apixaban 5 mg tablet (Eliquis) 5 mg PO BID 04/13/24 04/13/24 History atorvastatin 10 mg tablet (Lipitor) 10 mg PO HS 04/13/24 04/13/24 History digoxin 250 mcg (0.25 mg) tablet 250 mcg PO QAM 04/13/24 04/13/24 History empagliflozin 25 mg tablet 25 mg PO QAM 04/13/24 04/13/24 History (Jardiance) furosemide 40 mg tablet (Lasix) 40 mg PO QAM 04/13/24 04/13/24 History glimepiride 4 mg tablet 4 mg PO QAM 04/13/24 04/13/24 History lisinopril 20 mg tablet 20 mg PO QAM 04/13/24 04/13/24 History metformin 500 mg tablet 500 mg PO BIDM 04/13/24 04/13/24 History metoprolol succinate 100 mg 100 mg PO BID 04/13/24 04/13/24 History tablet,extended release 24 hr paroxetine HCl 10 mg tablet (Paxil) 10 mg PO QAM 04/13/24 04/13/24 History Patient History Social History Smoking Status: Never smoker Hx Alcohol Use: Yes Hx Substance Use: No Preferred Language: Bulgarian Communication Ability: Effective Lighter Required: No Beliefs That Will Affect Care: None Current Living Situation: Alone Feels Safe at Home: Yes Physical Exam Physical Exam: Gen.: No acute distress. Alert and oriented. HEENT: Anicteric sclera. Neck: JVD to the mandible. No bruits. Normal carotid upstrokes bilaterally. Cardiac: No ventricular heave. Irregularly irregular and tachycardic. Normal S1-S2. No definite murmur. Pulmonary: Clear to auscultation bilaterally without wheezes, rales, or rhonchi. Abdomen: Soft, nontender, nondistended, with normoactive bowel sounds. No bruits noted. Extremities: 2+ radial pulses bilaterally. 2+ posterior tibialis pulses bilaterally. 2+ right lower extremity edema. 1+ left lower extremity edema. Psychiatric: Affect appears appropriate. Results & Data Vital Signs (Past 12 Hours) Vital Signs Pulse Pulse Resp BP BP Pulse Ox Pulse Ox 04/14/24 10:21 133 H 18 139/103 H 95 04/14/24 08:53 144 H 04/14/24 07:36 132 H 18 99/79 L 100 04/14/24 05:35 95 04/14/24 05:30 133 H 17 132/109 H 96 04/14/24 05:01 146 H 17 119/88 94 04/14/24 04:33 135 H 17 95 04/14/24 04:00 149 H 15 143/104 H 95 04/14/24 03:33 141 H 16 94 04/14/24 03:00 127 H 14 96 04/14/24 02:00 108 H 24 131/109 H 95 04/14/24 01:16 123/99 04/14/24 00:48 22 91 04/14/24 00:45 142/94 H 04/14/24 00:42 89 20 91 O2 Del Method O2 Del Method 04/14/24 10:21 Room Air 04/14/24 08:53 04/14/24 07:36 Room Air 04/14/24 05:35 Room Air 04/14/24 05:30 Room Air 04/14/24 05:01 Room Air 04/14/24 04:33 Room Air 04/14/24 04:00 Room Air 04/14/24 03:33 Room Air 04/14/24 03:00 Room Air 04/14/24 02:00 Room Air 04/14/24 01:16 04/14/24 00:48 Room Air 04/14/24 00:45 04/14/24 00:42 Room Air Intake & Output 04/12/24 04/13/24 04/14/24 04/15/24 06:59 06:59 06:59 06:59 Intake Total 2534.255 / 2534.255 190.658 / 190.658 Balance 2534.255 / 2534.255 190.658 / 190.658 Weight 204 lb 5.896 oz 204 lb 5.896 oz Laboratory Results Laboratory Results - last 24 hr 04/13/24 04/14/24 04/14/24 22:27 04:44 06:52 WBC 7.76 RBC 4.34 Hgb 13.9 Hct 42.4 MCV 97.7 MCH 32.0 MCHC 32.8 RDW Std Deviation 63.7 H RDW Coeff of Will 18.0 H Plt Count 236 MPV 11.5 Immature Gran % (Auto) 0.9 Neut % (Auto) 70.0 Lymph % (Auto) 15.9 [place] % (Auto) 11.9 Eos % (Auto) 0.9 Baso % (Auto) 0.4 Neut # (Auto) 5.44 Lymph # (Auto) 1.23 [place] # (Auto) 0.92 H Eos # (Auto) 0.07 Baso # (Auto) 0.03 Immature Gran # (Auto) 0.07 Platelet Estimate Normal Sodium 135 L Potassium 3.6 Chloride 104 Carbon Dioxide 23 Anion Gap 8 BUN 17 Creatinine 0.71 Est Cr Clr Drug Dosing 77.9 Est GFR ( Amer) 97.9 Est GFR (Non-Af Amer) 84.5 BUN/Creatinine Ratio 23.9 H Glucose 411 H* POC Glucose 279 H 395 H* Estimat Average Glucose 301 Hemoglobin A1c 12.1 H Calcium 8.3 L Magnesium 2.0 Total Bilirubin 1.2 H GGT Pending AST 129 H ALT 346 H Alkaline Phosphatase 619 H Total Protein 5.8 L Albumin 3.3 L Globulin 2.5 Albumin/Globulin Ratio 1.3 Triglycerides 91 Cholesterol 117 LDL Cholesterol, Calc 66 VLDL Cholesterol, Calc 18 HDL Cholesterol 33 Cholesterol/HDL Ratio 3.5 Procalcitonin 0.04 Digoxin < 0.3 L 04/14/24 04/14/24 04/14/24 12:06 17:04 20:24 WBC RBC Hgb Hct MCV MCH MCHC RDW Std Deviation RDW Coeff of Will Plt Count MPV Immature Gran % (Auto) Neut % (Auto) Lymph % (Auto) [place] % (Auto) Eos % (Auto) Baso % (Auto) Neut # (Auto) Lymph # (Auto) [place] # (Auto) Eos # (Auto) Baso # (Auto) Immature Gran # (Auto) Platelet Estimate Sodium Potassium Chloride Carbon Dioxide Anion Gap BUN Creatinine Est Cr Clr Drug Dosing Est GFR ( Amer) Est GFR (Non-Af Amer) BUN/Creatinine Ratio Glucose POC Glucose 391 H* 272 H 176 H Estimat Average Glucose Hemoglobin A1c Calcium Magnesium Total Bilirubin GGT AST ALT Alkaline Phosphatase Total Protein Albumin Globulin Albumin/Globulin Ratio Triglycerides Cholesterol LDL Cholesterol, Calc VLDL Cholesterol, Calc HDL Cholesterol Cholesterol/HDL Ratio Procalcitonin Digoxin Diagnostic Findings ECHO 04/14/24: 1. Normal left ventricular size with moderately to severely reduced systolic function. EF 30-35%. Global hypokinesis. Mild concentric left ventricular hypertrophy. 2. Mildly dilated right ventricle with moderately reduced systolic function. 3. Mild left and moderate right atrial dilation. 4. Sclerotic aortic valve without significant stenosis. 5. Moderate mitral regurgitation. 6. Moderate tricuspid regurgitation. 7. Top normal right ventricular systolic pressure; RVSP 36 mmHg. 8. Atrial fibrillation with rapid ventricular response. 9. No prior study available for comparison. Labs reviewed and notable for elevated transaminase levels, significantly elevated glucose and A1c, normal magnesium, normal TSH, normal potassium, normal renal function, excellent LDL, undetectable digoxin level. Telemetry personally reviewed: Atrial fibrillation with rapid ventricular response. ECG personally reviewed from 04/13/2024 at 1657: A-fib with RVR 164 bpm. PVC versus aberrantly conducted complex. Possible inferior and anterior infarcts. History and physical report reviewed. CT abdomen/pelvis 04/13/2024: Body wall edema. Small amount of ascites. Small bilateral pleural effusions. Hepatic steatosis. Chest x-ray 04/13/2024: Hazy right basilar opacity. Possible hiatal hernia. Bilateral hilar prominence per radiology, likely due to pulmonary vessels. Medications Administered Current Inpatient Medications Albuterol (Albuterol Hfa 8 Gm Inhaler) 2 puffs INH Q6H PRN PRN Reason: Wheezing Stop: 05/14/24 02:25 Apixaban (Apixaban 5 Mg Tablet) 5 mg PO BID [facility] Stop: 05/14/24 02:25 Last Admin: 04/14/24 20:34 Dose: 5 mg Dextrose (Dextrose 50% 50 Ml Syringe) 25 - 50 ml IV UD PRN; Protocol PRN Reason: Hypoglycemia Protocol Stop: 05/14/24 02:25 Digoxin (Digoxin 0.25 Mg Tab) 0.25 mg PO DAILY@1600 [facility] Stop: 05/14/24 15:59 Last Admin: 04/14/24 15:51 Dose: 0.25 mg Empagliflozin (Empagliflozin 25 Mg Tab) 25 mg PO QAM [facility] Stop: 05/14/24 08:59 Last Admin: 04/14/24 09:28 Dose: 25 mg Glucagon (Glucagon For Inj 1 Mg Vial) 1 mg SQ UD PRN; Protocol PRN Reason: Hypoglycemia Protocol Stop: 05/14/24 02:25 Glucose (Glucose 40% Gel 15 Gm Tube) 15 - 30 gm PO UD PRN; Protocol PRN Reason: Hypoglycemia Protocol Stop: 05/14/24 02:25 Glucose (Glucose 10 Tab/Tube) 4 - 8 tab PO UD PRN; Protocol PRN Reason: Hypoglycemia Treatment Stop: 05/14/24 02:25 Amiodarone HCl/Dextrose (Nexterone / D5w) 360 mg in 200 mls @ 16.667 mls/hr IV .Q12H [facility] Stop: 05/14/24 05:14 Last Admin: 04/14/24 18:14 Dose: 0.5 mg/min, 16.7 mls/hr Insulin Aspart (Insulin Aspart Per Unit Charge) 0 units SC ACHS [facility]; Protocol Stop: 05/14/24 02:44 Last Admin: 04/14/24 20:33 Dose: 5 units Insulin Glargine (Lantus Per Unit Charge) 20 units SQ DAILY [facility]; Protocol Stop: 05/14/24 14:31 Last Admin: 04/14/24 15:31 Dose: 20 units Metoprolol Succinate (Metoprolol Succ 50mg Ext Rel Tab) 100 mg PO BID [facility] Stop: 05/14/24 08:59 Last Admin: 04/14/24 20:34 Dose: 100 mg Miscellaneous (Carbohydrates For Hypoglycemia ) 15 - 30 gm PO UD PRN PRN Reason: Hypoglycemia Protocol Stop: 05/14/24 02:25 Miscellaneous Information (Pharmacy Glycemic Mgmt Consult) 1 each N/A UD PRN PRN Reason: Consult Stop: 05/14/24 13:48 Paroxetine HCl (Paroxetine Hcl 10 Mg Tab) 10 mg PO QAM [facility] Stop: 05/14/24 08:59 Last Admin: 04/14/24 09:28 Dose: 10 mg PG Care Time/CCT Total # of Minutes Spent Total Time Spent with Patient: Total time spent is greater than 50% in coordination of care (as documented) at patient's floor/unit and/or counseling patient: Coding Level of Care Code 86135 INT INP/OBS CARE 3/75MIN Diagnoses Atrial fibrillation with RVR I48.91 HFrEF (heart failure with reduced ejection fraction) I50.20 Elevated troponin R79.89 Cardiomyopathy I42.9 Mitral regurgitation I34.0
[2024-04-14] MEDS: FUROSEMIDE 40 MG/4 ML VIAL IV ONE (13:30)
--- NOTE | 2024-04-14 13:41 | Hospitalist Progress Note ---
Date of Service April 14, 2024 Assessment & Plan (1) Atrial fibrillation with RVR: Plan: Patient was recently treated at [facility] with Lopressor, Cardizem drip, unsuccessful attempts of DCCV. She was then switched to amiodarone drip and was discharged on p.o. amiodarone along with digoxin, metoprolol, Eliquis. 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 When repeated after improvement in heart rate, EF was 45%. Repeat TTE Elevated BNP Patient appears to be in CHF flare Patient was given IV Lasix 40 mg x 1 by cardiology (3) DM2 (diabetes mellitus, type 2): Plan: A1c 11 in January 2024 Repeat A1c is 12 Noted the patient takes oral hypoglycemic agents at home Will need to be treated with insulin Start Lantus 20 units every morning Consult pharmacy for glycemic control Diabetes education (4) Transaminitis: Plan: Transaminitis first noted during admission at [facility] in January 2024 Transaminitis is worse now CT abdomen pelvis showed hepatic steatosis with hepatomegaly and nodular contour of the liver that may represent cirrhosis GGT pending Could be related to liver congestion Diuresis Monitor daily CMP (5) Elevated troponin: Plan: Most likely secondary to demand ischemia Check echocardiogram (6) HLD (hyperlipidemia): Plan: Continue statin Plan Full code DVT prophylaxis: Eliquis Admission and Anticipated Discharge Date Admission Date: April 13, 2024 Subjective Patient feels well. Says that she is not feeling short of breath at this time but she is not doing any activity. Review of Systems Review of Systems: All systems reviewed & are unremarkable except as noted in Subjective Physical Exam Physical Exam: General: Awake, conversant Heart: S1, S2/regular rate and rhythm, no murmur rubs or gallops Lungs: Clear to auscultation bilaterally. Normal effort Abdomen: Soft/nontender/nondistended. No hepatosplenomegaly Extremities: No clubbing/cyanosis. Mild bilateral lower extremity edema Behavior: Appropriate, cooperative Results & Data Results & Data Vital Signs (Past 12 Hours) Vital Signs Pulse Pulse Resp BP BP Pulse Ox Pulse Ox 04/14/24 10:21 133 H 18 139/103 H 95 04/14/24 08:53 144 H 04/14/24 07:36 132 H 18 99/79 L 100 04/14/24 05:35 95 04/14/24 05:30 133 H 17 132/109 H 96 04/14/24 05:01 146 H 17 119/88 94 04/14/24 04:33 135 H 17 95 04/14/24 04:00 149 H 15 143/104 H 95 04/14/24 03:33 141 H 16 94 04/14/24 03:00 127 H 14 96 04/14/24 02:00 108 H 24 131/109 H 95 O2 Del Method O2 Del Method 04/14/24 10:21 Room Air 04/14/24 08:53 04/14/24 07:36 Room Air 04/14/24 05:35 Room Air 04/14/24 05:30 Room Air 04/14/24 05:01 Room Air 04/14/24 04:33 Room Air 04/14/24 04:00 Room Air 04/14/24 03:33 Room Air 04/14/24 03:00 Room Air 04/14/24 02:00 Room Air Laboratory Results Abnormal lab results 04/13/24 04/13/24 04/13/24 Range/Units 17:20 20:04 20:06 RDW Std Deviation 62.3 H (36.4-46.3) fL RDW Coeff of Will 17.8 H (11.5-14.5) % Lymph # (Auto) 1.07 L (1.20-3.40) K/uL [place] # (Auto) 0.84 H (0.11-0.59) K/uL PT 12.1 H (9.0-12.0) Seconds Sodium 134 L (136-145) mmol/L BUN/Creatinine Ratio (10-20) Glucose 504 H* (70-99(Fasting)) mg/dl POC Glucose 394 H* (70-99) mg/dl Hemoglobin A1c (4.5-5.6) % Calcium (8.6-10.3) mg/dl Total Bilirubin 1.6 H (0.2-1.0) mg/dl AST 168 H (13-39) U/L ALT 393 H (7-52) U/L Alkaline Phosphatase 624 H (34-104) U/L Troponin I High Sens 20.8 H 19.7 H (0-14) pg/ml B-Natriuretic Peptide 578 H (0-100) pg/ml Total Protein (6.0-8.3) gm/dl Albumin (3.4-5.0) gm/dl Digoxin (0.8-2.0) ng/ml 04/13/24 04/14/24 04/14/24 Range/Units 22:27 04:44 06:52 RDW Std Deviation 63.7 H (36.4-46.3) fL RDW Coeff of Will 18.0 H (11.5-14.5) % Lymph # (Auto) (1.20-3.40) K/uL [place] # (Auto) 0.92 H (0.11-0.59) K/uL PT (9.0-12.0) Seconds Sodium 135 L (136-145) mmol/L BUN/Creatinine Ratio 23.9 H (10-20) Glucose 411 H* (70-99(Fasting)) mg/dl POC Glucose 279 H 395 H* (70-99) mg/dl Hemoglobin A1c 12.1 H (4.5-5.6) % Calcium 8.3 L (8.6-10.3) mg/dl Total Bilirubin 1.2 H (0.2-1.0) mg/dl AST 129 H (13-39) U/L ALT 346 H (7-52) U/L Alkaline Phosphatase 619 H (34-104) U/L Troponin I High Sens (0-14) pg/ml B-Natriuretic Peptide (0-100) pg/ml Total Protein 5.8 L (6.0-8.3) gm/dl Albumin 3.3 L (3.4-5.0) gm/dl Digoxin < 0.3 L (0.8-2.0) ng/ml PG Care Time/CCT Total # of Minutes Spent Total Time Spent with Patient: Total time spent is greater than 50% in coordination of care (as documented) at patient's floor/unit and/or counseling patient: Coding Level of Care Code 01634 SUB INP/OBS CARE 2/35MIN Diagnoses Atrial fibrillation with RVR I48.91 HFrEF (heart failure with reduced ejection fraction) I50.20 DM2 (diabetes mellitus, type 2) E11.9 Transaminitis R74.01 Elevated troponin R79.89 HLD (hyperlipidemia) E78.5
[2024-04-14] MEDS ORDERED: PHARMACY GLYCEMIC MGMT CONSULT PRN (13:49)
--- NOTE | 2024-04-14 14:41 | Pharmacy Report ---
Pharmacy Glycemic Short Note 2 - Date of Service April 14, 2024 - Glycemic Short BSG Results (Last 24 hours): 04/13/24 04/13/24 04/13/24 17:20 20:06 22:27 Glucose 504 H* POC Glucose 394 H* 279 H 04/14/24 04/14/24 04:44 06:52 Glucose 411 H* POC Glucose 395 H* OUTPATIENT ANTIDIABETIC REGIMEN: * Jardiance 25 mg PO AM * Glimepiride 4 mg PO AM * Metformin 500 mg PO BID * HbA1c: 12.1% (04/14/24) ASSESSMENT: * 74 yo F admitted on 04/13/24 secondary to Afib w/ RVR. Pharmacy has been consulted to assist with inpatient glycemic management. Patient is a Type 2 diabetic as an outpatient. Please refer to outpatient regimen and most recent HbA1c above. * BSGs yesterday were 504-394-279 mg/dL. Received an 8 unit IV insulin bolus around 8 pm last night. * Fasting BSG was 395 mg/dL this AM. Received Jardiance and 8 units of Novolog. Then lunchtime BSG was 391 mg/dL which prompted the glycemic consult. Will tighten Novolog to weight/stress of 3. Starting 20 units of basal daily as well with first dose now. PLAN FOR INPATIENT GLYCEMIC CONTROL: * Hold outpatient meds except for: * Jardiance 25 mg PO AM * Basal insulin * Lantus 20 units SC daily * Bolus insulin * NovoLog per scale ACHS or Q6hrs while NPO * Goal Range: Low 110 mg/dL - High 140 mg/dL * Correction Factor: 15 mg/dL/unit * Nutritional / Prandial insulin per carb ratio of 1 unit per 5 grams CHO consumed
[2024-04-14] MEDS: LANTUS PER UNIT CHARGE SQ SCH (15:31)
[2024-04-14] MEDS: DIGOXIN 0.25 MG TAB PO SCH (15:51)
--- NOTE | 2024-04-14 17:01 | XCELERA ---
[id number]
--- NOTE | 2024-04-14 19:30 | Billing Data ---
Date of Service April 14, 2024 Coding Level of Care Code 98520 INT INP/OBS CARE
[2024-04-15 06:33] LABS: Hematocrit (blood only) 40.5 % (37.0-47.0); Hemoglobin 13.4 g/dl (12.0-16.0); Mean Corpuscular Hemoglobin 31.4 pg (25.0-34.0); Mean Corpuscular Hgb Conc 33.1 g/dL (32.0-36.0); Mean Corpuscular Volume 94.8 fL (80.0-100.0); Mean Platelet Volume 10.9 fL (9.4-12.4); Platelet Count 274 K/uL (130-400); RDW Coefficient of Variation 17.7 % (11.5-14.5); RDW Standard Deviation 60.8 fL (36.4-46.3); Red Blood Count 4.27 M/uL (4.20-5.40); White Blood Count 7.81 K/ul (4.8-10.8)
[2024-04-15 08:15] LABS: Albumin Globulin Ratio 1.4 (0.9-2); Albumin Level 3.3 gm/dl (3.4-5.0); BUN Creatinine Ratio 26.7 (10-20); Calcium 8.5 mg/dl (8.6-10.3); Creatinine Clr Calc Pharmacy 92.1 ml/min; Est GFR (African American) 104.8 ml/min; Est GFR (Non-African American) 90.4 ml/min; Globulin 2.4 gm/dl (2.5-4.0); Total Protein 5.7 gm/dl (6.0-8.3)
[2024-04-15] MEDS: FUROSEMIDE 40 MG/4 ML VIAL IV SCH (08:24)
[2024-04-15] MEDS: LANTUS PER UNIT CHARGE SQ SCH (08:35)
--- NOTE | 2024-04-15 08:58 | Cardiology Progress Note ---
Date of Service April 15, 2024 Assessment & Plan (1) Atrial fibrillation with RVR: (2) HFrEF (heart failure with reduced ejection fraction): (3) Elevated troponin: (4) Cardiomyopathy: (5) Mitral regurgitation: Plan ASSESSMENT/PLAN: 1. Atrial fibrillation with rapid ventricular response: Persistent. Reverted to A-fib rather quickly after DC cardioversion x 4 at [facility]. Apparently was rate controlled with amiodarone, digoxin, and beta-aundrea but amiodarone since discontinued by PCP according to family. Given undetectable digoxin level, wonder if she was taking medications appropriately as she does not recall her medications and has poor memory. Will discontinue amiodarone as transaminase levels are increasing now that amiodarone has been resumed. Increase metoprolol succinate to 150 mg twice daily to attempt better rate control. Recommend that she follow-up with her manager target as A-fib ablation was being considered. Continue anticoagulation for stroke risk reduction. 2. Chronic heart failure with reduced EF: She appears hypervolemic. Lasix 40 mg IV x 1 was ordered this afternoon. 40 mg Lasix IV daily. Try to maintain net negative fluid balance. Low-sodium diet. Strict I's and O's while hospitalized. Daily weights. Continue SGLT2 inhibitor. Lisinopril was held on presentation. Recommend Entresto sometime after 36 hours from most recent lisinopril dose. Start spironolactone. Continue metoprolol succinate. 3. Cardiomyopathy: May be related to tachycardia given recent issues with uncontrolled A-fib with RVR. Will attempt to achieve rate control. Admitting records document that she is to undergo cardiac MRI to evaluate for amyloidosis through her primary crystal finisher. If LV systolic function does not improve above 35% EF on optimal medical therapy and rate control (after 3 months of therapy), consider ICD for primary prevention. 4. Mitral regurgitation: Moderate. Monitor over time. 5. Elevated troponin: Likely due to demand ischemia in the setting of A-fib with RVR and heart failure. Peak troponin was 20.8. She did not present with acute coronary syndrome. Management as above. 6. Type 2 diabetes: Poorly controlled. Management as per primary hospitalist service. 7. Hypokalemia: Potassium supplementation ordered. Spironolactone initiated. 8. Elevated transaminase levels: Elevated on presentation but trended downward yesterday only to increase now that amiodarone has been resumed. Discontinue amiodarone. Further evaluation as per primary hospitalist service. 9. Disposition: Cardiology will continue to follow along. Recommend close follow-up on discharge with her primary crystal finisher/manager target at [facility]. Her son, German, was updated via phone, including the reason for amiodarone discontinuation. Patient care communicated with primary hospitalist, Dr. Tavarez. Admission and Anticipated Discharge Date Admission Date: April 13, 2024 Subjective Patient seen earlier this afternoon. She denies chest pain, shortness of breath, syncope, near syncope, palpitations, or bleeding. She had no complaints. She was alone in her hospital room. Physical Exam Physical Exam: Gen.: No acute distress. Alert. HEENT: Anicteric sclera. Neck: JVD to the mandible. Cardiac: No ventricular heave. Irregularly irregular and tachycardic. Normal S1-S2. No murmur. Pulmonary: Clear to auscultation bilaterally without wheezes, rales, or rhonchi. Abdomen: Soft, nontender, nondistended, with normoactive bowel sounds. No bruits noted. Extremities: 2+ radial pulses bilaterally. 2+ posterior tibialis pulses bilaterally. 2+ right lower extremity edema. 1+ left lower extremity edema. Psychiatric: Affect appears appropriate. Results & Data Vital Signs (Past 12 Hours) Vital Signs Temp Pulse Resp BP Pulse Ox Pulse Ox O2 Del Method 04/15/24 08:29 36.6 C 126 H 18 133/90 64 L Room Air 04/15/24 05:00 95 04/15/24 04:30 36.6 C 120 H 20 136/101 H 93 Room Air 04/14/24 23:05 36.4 C L 137 H 20 140/102 H 93 Room Air O2 Del Method 04/15/24 08:29 04/15/24 05:00 Room Air 04/15/24 04:30 04/14/24 23:05 Intake & Output 04/13/24 04/14/24 04/15/24 04/16/24 06:59 06:59 06:59 06:59 Intake Total 2534.255 / 2534.255 378.255 / 378.255 Balance 2534.255 / 2534.255 378.255 / 378.255 Weight 204 lb 5.896 oz 204 lb 5.896 oz Laboratory Results Laboratory Results - last 24 hr 04/14/24 04/14/24 04/14/24 06:52 12:06 17:04 WBC RBC Hgb Hct MCV MCH MCHC RDW Std Deviation RDW Coeff of Will Plt Count MPV Sodium Potassium Chloride Carbon Dioxide Anion Gap BUN 17 Creatinine 0.71 Est Cr Clr Drug Dosing 77.9 Est GFR ( Amer) 97.9 Est GFR (Non-Af Amer) 84.5 BUN/Creatinine Ratio 23.9 H Glucose 411 H* POC Glucose 391 H* 272 H Calcium Magnesium 2.0 Total Bilirubin 1.2 H GGT 582 H AST 129 H ALT 346 H Alkaline Phosphatase 619 H Total Protein 5.8 L Albumin 3.3 L Globulin 2.5 Albumin/Globulin Ratio 1.3 Triglycerides 91 Cholesterol 117 LDL Cholesterol, Calc 66 VLDL Cholesterol, Calc 18 HDL Cholesterol 33 Cholesterol/HDL Ratio 3.5 04/14/24 04/15/24 04/15/24 20:24 05:42 08:00 WBC 7.81 RBC 4.27 Hgb 13.4 Hct 40.5 MCV 94.8 MCH 31.4 MCHC 33.1 RDW Std Deviation 60.8 H RDW Coeff of Will 17.7 H Plt Count 274 MPV 10.9 Sodium 140 Potassium 3.0 L Chloride 104 Carbon Dioxide 27 Anion Gap 9 BUN 16 Creatinine 0.60 Est Cr Clr Drug Dosing 92.1 Est GFR ( Amer) 104.8 Est GFR (Non-Af Amer) 90.4 BUN/Creatinine Ratio 26.7 H Glucose 96 POC Glucose 176 H 126 H Calcium 8.5 L Magnesium Total Bilirubin 1.0 GGT AST 209 H ALT 410 H Alkaline Phosphatase 611 H Total Protein 5.7 L Albumin 3.3 L Globulin 2.4 L Albumin/Globulin Ratio 1.4 Triglycerides Cholesterol LDL Cholesterol, Calc VLDL Cholesterol, Calc HDL Cholesterol Cholesterol/HDL Ratio Diagnostic Findings Labs reviewed and notable for hypokalemia, normal blood counts, stable renal function, elevated LFTs, increasing from yesterday. Telemetry personally reviewed: Atrial fibrillation with rapid ventricular response. Heart rate was approximately 120 bpm. Medications Administered Current Inpatient Medications Albuterol (Albuterol Hfa 8 Gm Inhaler) 2 puffs INH Q6H PRN PRN Reason: Wheezing Stop: 07/01/24 02:25 Apixaban (Apixaban 5 Mg Tablet) 5 mg PO BID [facility] Stop: 05/14/24 02:25 Last Admin: 04/15/24 08:24 Dose: 5 mg Dextrose (Dextrose 50% 50 Ml Syringe) 25 - 50 ml IV UD PRN; Protocol PRN Reason: Hypoglycemia Protocol Stop: 05/14/24 02:25 Digoxin (Digoxin 0.25 Mg Tab) 0.25 mg PO DAILY@1600 [facility] Stop: 05/14/24 15:59 Last Admin: 04/14/24 15:51 Dose: 0.25 mg Empagliflozin (Empagliflozin 25 Mg Tab) 25 mg PO QAM [facility] Stop: 05/14/24 08:59 Last Admin: 04/15/24 08:24 Dose: 25 mg Furosemide (Furosemide 40 Mg/4 Ml Vial) 40 mg IV QAM [facility] Stop: 05/15/24 08:59 Last Admin: 04/15/24 08:24 Dose: 40 mg Glucagon (Glucagon For Inj 1 Mg Vial) 1 mg SQ UD PRN; Protocol PRN Reason: Hypoglycemia Protocol Stop: 05/14/24 02:25 Glucose (Glucose 40% Gel 15 Gm Tube) 15 - 30 gm PO UD PRN; Protocol PRN Reason: Hypoglycemia Protocol Stop: 05/14/24 02:25 Glucose (Glucose 10 Tab/Tube) 4 - 8 tab PO UD PRN; Protocol PRN Reason: Hypoglycemia Treatment Stop: 05/14/24 02:25 Amiodarone HCl/Dextrose (Nexterone / D5w) 360 mg in 200 mls @ 16.667 mls/hr IV .Q12H [facility] Stop: 05/14/24 05:14 Last Admin: 04/15/24 05:28 Dose: 0.5 mg/min, 16.7 mls/hr Insulin Aspart (Insulin Aspart Per Unit Charge) 0 units SC ACHS [facility]; Protocol Stop: 05/14/24 02:44 Last Admin: 04/15/24 08:34 Dose: 11 units Insulin Glargine (Lantus Per Unit Charge) 10 units SQ DAILY [facility]; Protocol Stop: 05/14/24 14:31 Last Admin: 04/15/24 08:35 Dose: 10 units Metoprolol Succinate (Metoprolol Succ 50mg Ext Rel Tab) 100 mg PO BID [facility] Stop: 05/14/24 08:59 Last Admin: 04/15/24 08:24 Dose: 100 mg Miscellaneous (Carbohydrates For Hypoglycemia ) 15 - 30 gm PO UD PRN PRN Reason: Hypoglycemia Protocol Stop: 05/14/24 02:25 Miscellaneous Information (Pharmacy Glycemic Mgmt Consult) 1 each N/A UD PRN PRN Reason: Consult Stop: 05/14/24 13:48 Paroxetine HCl (Paroxetine Hcl 10 Mg Tab) 10 mg PO QAM [facility] Stop: 05/14/24 08:59 Last Admin: 04/15/24 08:24 Dose: 10 mg Potassium Chloride (Potassium Chloride Crtab 20 Meq Tabcr) 40 meq PO ONE ONE Stop: 04/15/24 12:01 Spironolactone (Spironolactone 25 Mg Tab) 25 mg PO QAM [facility] Stop: 05/15/24 08:59 PG Care Time/CCT Total # of Minutes Spent Total Time Spent with Patient: Total time spent is greater than 50% in coordination of care (as documented) at patient's floor/unit and/or counseling patient: Coding Level of Care Code 59707 SUB INP/OBS CARE 3/50MIN Diagnoses Atrial fibrillation with RVR I48.91 HFrEF (heart failure with reduced ejection fraction) I50.20 Elevated troponin R79.89 Cardiomyopathy I42.9 Mitral regurgitation I34.0
[2024-04-15] MEDS: SPIRONOLACTONE 25 MG TAB PO SCH (09:50)
[2024-04-15] MEDS: POTASSIUM CHLORIDE CRTAB 20 MEQ TABCR PO STA (09:51)
[2024-04-15] MEDS: METOPROLOL SUCC 50MG EXT REL TAB PO STA (09:51)
[2024-04-15] MEDS: POTASSIUM CHLORIDE CRTAB 20 MEQ TABCR PO ONE (12:37)
--- NOTE | 2024-04-15 14:29 | Pharmacy Report ---
Pharmacy Glycemic Short Note 2 - Date of Service April 15, 2024 - Glycemic Short BSG Results (Last 24 hours): 04/14/24 04/14/24 04/14/24 12:06 17:04 20:24 Glucose POC Glucose 391 H* 272 H 176 H 04/15/24 04/15/24 04/15/24 05:42 08:00 11:46 Glucose 96 POC Glucose 126 H 94 OUTPATIENT ANTIDIABETIC REGIMEN: * Jardiance 25 mg PO AM * Glimepiride 4 mg PO AM * Metformin 500 mg PO BID * HbA1c: 12.1% (04/14/24) ASSESSMENT: 04/15: * Meggan received 59 units of insulin yesterday, 20 of which was basal. BSGs were [phone] mg/dL. * Fasting BSG was 126 mg/dL this AM. Reduced basal by half. * Lunchtime BSG dropped to 94 mg/dL today. Will d/c all basal insulin and loosen Novolog slightly. 04/14: * 74 yo F admitted on 04/13/24 secondary to Afib w/ RVR. Pharmacy has been consulted to assist with inpatient glycemic management. Patient is a Type 2 diabetic as an outpatient. Please refer to outpatient regimen and most recent HbA1c above. * BSGs yesterday were 504-394-279 mg/dL. Received an 8 unit IV insulin bolus around 8 pm last night. * Fasting BSG was 395 mg/dL this AM. Received Jardiance and 8 units of Novolog. Then lunchtime BSG was 391 mg/dL which prompted the glycemic consult. Will tighten Novolog to weight/stress of 3. Starting 20 units of basal daily as well with first dose now. PLAN FOR INPATIENT GLYCEMIC CONTROL: * Hold outpatient meds except for: * Jardiance 25 mg PO AM * Basal insulin * Lantus 10 units SC x 1 today * No more basal moving forward * Bolus insulin * NovoLog per scale ACHS or Q6hrs while NPO * Goal Range: Low 110 mg/dL - High 140 mg/dL * Correction Factor: 20 mg/dL/unit * Nutritional / Prandial insulin per carb ratio of 1 unit per 7 grams CHO consumed
--- NOTE | 2024-04-15 15:11 | Hospitalist Progress Note ---
Date of Service April 15, 2024 Assessment & Plan (1) Atrial fibrillation with RVR: Plan: - Afib with RVR with rates in the 160s on presentation -Patient was on amiodarone drip since admission Undetectable digoxin level. Most likely she has not been on digoxin at home. Amiodarone discontinued because of rising transaminases Retail Service Technician increased the dose of metoprolol to 150 mg twice daily to achieve better rate control. Continue Eliquis Treat heart failure Continue to hold amlodipine and lisinopril (2) HFrEF (heart failure with reduced ejection fraction): Plan: - Echo from 01/2024 initially with EF 30-35%. Repeat after improvement in hearts rates with EF= 40-45%, LA thickening -Repeat echo on 04/14 shows EF of 35% with global hypokinesis Patient appears hypervolemic She is being diuresed with IV Lasix daily. Low-sodium diet Strict I's and O's Lisinopril has been held Plan to switch to Entresto during this hospitalization Patient has been started on spironolactone Metoprolol has been increased to 150 twice daily (3) DM2 (diabetes mellitus, type 2): Plan: - hemoglobin a1c= 11 01/2024; repeat A1c came back at 12.1 - hold glimepiride, metformin - continue Jardiance Patient has been started on 20 units of Lantus every morning Diabetes education consulted Plan to discharge her on Lantus once daily dosing, Jardiance, metformin. Will discontinue glimepiride. Continue to check fingersticks twice per day at home - SSI while IP (4) Transaminitis: Plan: - transaminitis noted during admission 01/2024 at [facility]; AST= 31, ALT= 108, Alk Phos= 176, T Bili= 1 - On admission AST= 168, ALT= 393, Alk Phos= 624, t bili= 1.6 - CT A&P with Hepatic steatosis. Hepatomegaly. Nodular contour of the liver may represent cirrhosis -Amiodarone discontinued due to rising transaminases Monitor daily LFTs (5) Elevated troponin: Plan: - troponin 20-> 19 - asymptomatic and without ischemic changes on EKG - likely demand ischemia (6) HLD (hyperlipidemia): Plan: - continue statin, repeat lipid panel (7) Atelectasis: Plan: - CXR with concern for opacity - CT with mild depended atelectasis/small B/L pleural effusions - incentive spirometry - pro leonid pending, no signs of acute infection defer antibiotics at present Plan Diet: DM2, Heart Healthy Dispo: PCU Code: FUll VTE Prophylaxis: Aidequcorby Admission and Anticipated Discharge Date Admission Date: April 13, 2024 Subjective Patient says that she feels less bloated today in her belly. Her legs are still slightly swollen. She has been urinating quite a bit in response to the [employer] Review of Systems Review of Systems: All systems reviewed & are unremarkable except as noted in Subjective Physical Exam Physical Exam: General: Awake, conversant Heart: S1, S2/regular rate and rhythm, no murmur rubs or gallops Lungs: Diminished breath sounds bilaterally. Normal effort Abdomen: Soft/nontender/nondistended. No hepatosplenomegaly Extremities: No clubbing/cyanosis. Mild bilateral lower extremity edema Behavior: Appropriate, cooperative Results & Data Results & Data Vital Signs (Past 12 Hours) Vital Signs Temp Pulse Resp BP Pulse Ox Pulse Ox O2 Del Method 04/15/24 11:47 36.7 C 118 H 18 119/80 93 Room Air 04/15/24 08:29 36.6 C 126 H 18 133/90 64 L Room Air 04/15/24 05:00 95 04/15/24 04:30 36.6 C 120 H 20 136/101 H 93 Room Air O2 Del Method 04/15/24 11:47 04/15/24 08:29 04/15/24 05:00 Room Air 04/15/24 04:30 Laboratory Results Abnormal lab results 04/14/24 04/14/24 04/14/24 Range/Units 06:52 12:06 17:04 RDW Std Deviation (36.4-46.3) fL RDW Coeff of Will (11.5-14.5) % Potassium (3.5-5.1) mmol/L BUN/Creatinine Ratio (10-20) POC Glucose 391 H* 272 H (70-99) mg/dl Calcium (8.6-10.3) mg/dl GGT 582 H (3-65) U/L AST (13-39) U/L ALT (7-52) U/L Alkaline Phosphatase (34-104) U/L Total Protein (6.0-8.3) gm/dl Albumin (3.4-5.0) gm/dl Globulin (2.5-4.0) gm/dl 04/14/24 04/15/24 04/15/24 Range/Units 20:24 05:42 08:00 RDW Std Deviation 60.8 H (36.4-46.3) fL RDW Coeff of Will 17.7 H (11.5-14.5) % Potassium 3.0 L (3.5-5.1) mmol/L BUN/Creatinine Ratio 26.7 H (10-20) POC Glucose 176 H 126 H (70-99) mg/dl Calcium 8.5 L (8.6-10.3) mg/dl GGT (3-65) U/L AST 209 H (13-39) U/L ALT 410 H (7-52) U/L Alkaline Phosphatase 611 H (34-104) U/L Total Protein 5.7 L (6.0-8.3) gm/dl Albumin 3.3 L (3.4-5.0) gm/dl Globulin 2.4 L (2.5-4.0) gm/dl PG Care Time/CCT Total # of Minutes Spent Total Time Spent with Patient: Total time spent is greater than 50% in coordination of care (as documented) at patient's floor/unit and/or counseling patient: Coding Level of Care Code 84325 SUB INP/OBS CARE 2/35MIN Diagnoses Atrial fibrillation with RVR I48.91 HFrEF (heart failure with reduced ejection fraction) I50.20 DM2 (diabetes mellitus, type 2) E11.9 Transaminitis R74.01 Elevated troponin R79.89 HLD (hyperlipidemia) E78.5 Atelectasis J98.11
--- NOTE | 2024-04-15 18:57 | Electrocardiogram Report ---
Test Reason : Blood Pressure : / mmHG Vent. Rate : 164 BPM Atrial Rate : 000 BPM P-R Int : 000 ms QRS Dur : 080 ms QT Int : 302 ms P-R-T Axes : 000 -35 -03 degrees QTc Int : 498 ms Atrial fibrillation with rapid ventricular response with premature ventricular or aberrantly conducte d complexes Left axis deviation Inferior infarct , age undetermined Anterior infarct , age undetermined Abnormal ECG No previous ECGs available Confirmed by Franco Mehta ([id number]) on 04/15/2024 6:57:20 PM Referred By: REFERRED SELF Confirmed By:Franco Mehta
[2024-04-15] MEDS: METOPROLOL SUCC 50MG EXT REL TAB PO SCH (20:50)
[2024-04-16] MEDS: MELATONIN 3 MG TAB PO PRN (00:51)
[2024-04-16 06:10] LABS: Hematocrit (blood only) 43.6 % (37.0-47.0); Hemoglobin 14.4 g/dl (12.0-16.0); Mean Corpuscular Hemoglobin 31.8 pg (25.0-34.0); Mean Corpuscular Volume 96.2 fL (80.0-100.0); Mean Platelet Volume 10.7 fL (9.4-12.4); Platelet Count 292 K/uL (130-400); RDW Coefficient of Variation 18.2 % (11.5-14.5); RDW Standard Deviation 63.9 fL (36.4-46.3); Red Blood Count 4.53 M/uL (4.20-5.40); White Blood Count 6.89 K/ul (4.8-10.8)
[2024-04-16 06:32] LABS: Albumin Globulin Ratio 1.3 (0.9-2); Albumin Level 3.3 gm/dl (3.4-5.0); Bilirubin,Total 1.4 mg/dl (0.2-1.0); Calcium 8.5 mg/dl (8.6-10.3); Creatinine Clr Calc Pharmacy 65.8 ml/min; Est GFR (African American) 79.9 ml/min; Globulin 2.6 gm/dl (2.5-4.0); Potassium 3.8 mmol/L (3.5-5.1); Total Protein 5.9 gm/dl (6.0-8.3)
[2024-04-16] MEDS: LANTUS PER UNIT CHARGE SQ SCH (09:12)
--- NOTE | 2024-04-16 09:58 | Cardiology Progress Note ---
Date of Service April 16, 2024 Assessment & Plan (1) Atrial fibrillation with RVR: (2) HFrEF (heart failure with reduced ejection fraction): (3) Elevated troponin: (4) Cardiomyopathy: (5) Mitral regurgitation: Plan ASSESSMENT/PLAN: 1. Atrial fibrillation with rapid ventricular response: Persistent. Reverted to A-fib rather quickly after DC cardioversion x 4 at [facility]. Apparently was rate controlled with amiodarone, digoxin, and beta-aundrea but amiodarone since discontinued by PCP according to family. Given undetectable digoxin level, wonder if she was taking medications appropriately as she does not recall her medications and has poor memory. Amiodarone discontinued here due to elevated and upward trending transaminase levels while on amiodarone. Transaminase levels have since trended downward. Increase metoprolol to succinate to 200 mg twice daily. Recommend that she follow-up with her plumber maintenance as A-fib ablation was being considered. Continue anticoagulation for stroke risk reduction. 2. Chronic heart failure with reduced EF: She appears hypervolemic. Increase Lasix to 40 mg IV twice daily rather than once daily dosing. Try to maintain net negative fluid balance. Low-sodium diet. Strict I's and O's while hospitalized. Daily weights. Weight trending downward. Fluid balance inaccurate. Continue SGLT2 inhibitor. Lisinopril was held on presentation. Recommend Entresto sometime after 36 hours from most recent lisinopril dose. Spironolactone initiated this hospital stay. Continue metoprolol succinate. If blood pressure tolerates further titration of beta-aundrea, would consider Entresto tomorrow at low-dose. 3. Cardiomyopathy: May be related to tachycardia given recent issues with uncontrolled A-fib with RVR. Will attempt to achieve rate control. Admitting records document that she is to undergo cardiac MRI to evaluate for amyloidosis through her primary wall scraper. If LV systolic function does not improve above 35% EF on optimal medical therapy and rate control (after 3 months of therapy), consider ICD for primary prevention. 4. Mitral regurgitation: Moderate. Monitor over time. 5. Elevated troponin: Likely due to demand ischemia in the setting of A-fib with RVR and heart failure. Peak troponin was 20.8. She did not present with acute coronary syndrome. Management as above. 6. Type 2 diabetes: Poorly controlled. Management as per primary hospitalist service. 7. Hypokalemia: Potassium supplementation as necessary. Spironolactone initiated. 8. Elevated transaminase levels: Elevated on presentation and worsened with amiodarone. Amiodarone discontinued and transaminase levels are trending downward. Further evaluation as per primary hospitalist service. 9. Disposition: Cardiology will continue to follow along. Recommend close follow-up on discharge with her primary wall scraper/plumber maintenance at [facility]. Her son, German, was updated via phone on 04/15/24, including the reason for amiodarone discontinuation. Patient care communicated with [facility] hospitalist, Dr. Tavarez. Admission and Anticipated Discharge Date Admission Date: April 13, 2024 Subjective Patient seen this morning. She denies chest pain, shortness of breath, syncope, near syncope, palpitations. She believes that her edema has improved. She woul d like to go home but is willing to stay for further treatment. She was alone in her hospital room. Physical Exam Physical Exam: Gen.: No acute distress. Alert. HEENT: Anicteric sclera. Neck: JVD skilled nursing to the mandible sitting upright. Cardiac: No ventricular heave. Irregularly irregular and tachycardic. Normal S1-S2. No murmur. Pulmonary: Clear to auscultation bilaterally without wheezes, rales, or rhonchi. Abdomen: Soft, nontender, nondistended, with normoactive bowel sounds. No bruits noted. Extremities: 2+ radial pulses bilaterally. 2+ posterior tibialis pulses bilaterally. 1+ right lower extremity edema. 1+ left lower extremity edema. Psychiatric: Affect appears appropriate. Results & Data Vital Signs (Past 12 Hours) Vital Signs Temp Pulse Pulse Resp BP Pulse Ox O2 Del Method 04/16/24 08:01 36.3 C L 121 H 18 113/81 93 Room Air 04/16/24 07:38 Room Air 04/16/24 07:34 110 H 04/16/24 06:04 36.6 C 116 H 18 117/80 95 Room Air 04/16/24 00:13 36.7 C 115 H 18 110/77 95 Room Air 04/15/24 23:43 117 H Intake & Output 04/14/24 04/15/24 04/16/24 04/17/24 06:59 06:59 06:59 06:59 Intake Total 2534.255 / 2534.255 378.255 / 656.023 6429 / 1400 Balance 2534.255 / 2534.255 378.255 / 493.068 3228 / 1400 Weight 204 lb 5.896 oz 204 lb 5.896 oz 201 lb 0.985 oz Laboratory Results Laboratory Results - last 24 hr 04/15/24 04/15/24 04/15/24 11:46 17:05 20:47 WBC RBC Hgb Hct MCV MCH MCHC RDW Std Deviation RDW Coeff of Will Plt Count MPV Sodium Potassium Chloride Carbon Dioxide Anion Gap BUN Creatinine Est Cr Clr Drug Dosing Est GFR ( Amer) Est GFR (Non-Af Amer) BUN/Creatinine Ratio Glucose POC Glucose 94 91 146 H Calcium Total Bilirubin AST ALT Alkaline Phosphatase Total Protein Albumin Globulin Albumin/Globulin Ratio 04/16/24 04/16/24 05:42 08:01 WBC 6.89 RBC 4.53 Hgb 14.4 Hct 43.6 MCV 96.2 MCH 31.8 MCHC 33.0 RDW Std Deviation 63.9 H RDW Coeff of Will 18.2 H Plt Count 292 MPV 10.7 Sodium 138 Potassium 3.8 D Chloride 103 Carbon Dioxide 25 Anion Gap 10 BUN 21 Creatinine 0.84 Est Cr Clr Drug Dosing 65.8 Est GFR ( Amer) 79.9 Est GFR (Non-Af Amer) 69.0 BUN/Creatinine Ratio 25.0 H Glucose 120 H POC Glucose 102 H Calcium 8.5 L Total Bilirubin 1.4 H AST 150 H ALT 357 H Alkaline Phosphatase 684 H Total Protein 5.9 L Albumin 3.3 L Globulin 2.6 Albumin/Globulin Ratio 1.3 Diagnostic Findings Telemetry personally reviewed: Atrial fibrillation with rapid ventricular response. Heart rate mostly 120s. Labs reviewed and notable for normal blood counts, stable renal function, normal potassium. Transaminase levels are trending downward. Medications Administered Current Inpatient Medications Albuterol (Albuterol Hfa 8 Gm Inhaler) 2 puffs INH Q6H PRN PRN Reason: Wheezing Stop: 05/14/24 02:25 Apixaban (Apixaban 5 Mg Tablet) 5 mg PO BID MARNIE Stop: 05/14/24 02:25 Last Admin: 04/16/24 09:06 Dose: 5 mg Dextrose (Dextrose 50% 50 Ml Syringe) 25 - 50 ml IV UD PRN; Protocol PRN Reason: Hypoglycemia Protocol Stop: 05/14/24 02:25 Digoxin (Digoxin 0.25 Mg Tab) 0.25 mg PO DAILY@1600 [facility] Stop: 05/14/24 15:59 Last Admin: 04/15/24 17:09 Dose: 0.25 mg Empagliflozin (Empagliflozin 25 Mg Tab) 25 mg PO QAM [facility] Stop: 05/14/24 08:59 Last Admin: 04/16/24 09:06 Dose: 25 mg Furosemide (Furosemide 40 Mg/4 Ml Vial) 40 mg IV QAM [facility] Stop: 05/15/24 08:59 Last Admin: 04/16/24 09:06 Dose: 40 mg Glucagon (Glucagon For Inj 1 Mg Vial) 1 mg SQ UD PRN; Protocol PRN Reason: Hypoglycemia Protocol Stop: 05/14/24 02:25 Glucose (Glucose 40% Gel 15 Gm Tube) 15 - 30 gm PO UD PRN; Protocol PRN Reason: Hypoglycemia Protocol Stop: 05/14/24 02:25 Glucose (Glucose 10 Tab/Tube) 4 - 8 tab PO UD PRN; Protocol PRN Reason: Hypoglycemia Treatment Stop: 05/14/24 02:25 Insulin Aspart (Insulin Aspart Per Unit Charge) 0 units SC [facility]; Protocol Stop: 05/14/24 02:44 Last Admin: 04/16/24 09:02 Dose: Not Given Insulin Glargine (Lantus Per Unit Charge) 10 units SQ DAILY [facility] Stop: 05/16/24 08:59 Last Admin: 04/16/24 09:12 Dose: 10 units Melatonin (Melatonin 3 Mg Tab) 3 mg PO HS PRN PRN Reason: Sleep Stop: 05/16/24 00:16 Last Admin: 04/16/24 00:51 Dose: 3 mg Metoprolol Succinate (Metoprolol Succ 50mg Ext Rel Tab) 150 mg PO BID [facility] Stop: 05/15/24 20:59 Last Admin: 04/15/24 20:50 Dose: 150 mg Miscellaneous (Carbohydrates For Hypoglycemia ) 15 - 30 gm PO UD PRN PRN Reason: Hypoglycemia Protocol Stop: 05/14/24 02:25 Paroxetine HCl (Paroxetine Hcl 10 Mg Tab) 10 mg PO QAM [facility] Stop: 05/14/24 08:59 Last Admin: 04/16/24 09:06 Dose: 10 mg Spironolactone (Spironolactone 25 Mg Tab) 25 mg PO QAM MARNIE Stop: 05/15/24 08:59 Last Admin: 04/16/24 09:07 Dose: 25 mg PG Care Time/CCT Total # of Minutes Spent Total Time Spent with Patient: Total time spent is greater than 50% in coordination of care (as documented) at patient's floor/unit and/or counseling patient: Coding Level of Care Code 82145 SUB INP/OBS CARE 3/50MIN Diagnoses Atrial fibrillation with RVR I48.91 HFrEF (heart failure with reduced ejection fraction) I50.20 Elevated troponin R79.89 Cardiomyopathy I42.9 Mitral regurgitation I34.0
[2024-04-16] MEDS: METOPROLOL SUCC 50MG EXT REL TAB PO STA (11:03)
--- NOTE | 2024-04-16 12:59 | Pharmacy Report ---
Pharmacy Glycemic Sign Off Nt - Date of Service April 16, 2024 - Assessment & Plan ASSESSMENT: * Pharmacy was consulted by Dr Tavarez on 04/14 for glycemic control and to write orders per [facility] inpatient glycemic control protocol. * Insulin requirements have been decreasing since initial orders placed * Patient has been received 27 units of insulin yesterday with adequate control * BSGs ranging 91- 126 mg/dl * Per discussion with Dr. Tavarez today, she will resume management, will trial 10 units of lantus daily and hold novolog in anticipation of discharge/outpatient regimen. Jardiance 25 mg daily continued. Metformin continues to be held * Pharmacy is signing off of glycemic consult and will no longer be making adjustments to inpatient regimen. Please feel free to re-consult if needed. Thank you.
--- NOTE | 2024-04-16 14:54 | Hospitalist Progress Note ---
Date of Service April 16, 2024 Assessment & Plan (1) Atrial fibrillation with RVR: Plan: - Afib with RVR with rates in the 160s on presentation -Patient was on amiodarone drip which was discontinued due to rising transaminases Undetectable digoxin level. Most likely she has not been on digoxin at home. Blood Donor Recruiter Supervisor increased the dose of metoprolol to 200 mg twice daily to achieve better rate control. Continue Eliquis Treat heart failure Continue to hold amlodipine and lisinopril (2) HFrEF (heart failure with reduced ejection fraction): Plan: - Echo from 01/2024 initially with EF 30-35%. Repeat after improvement in hearts rates with EF= 40-45%, LA thickening -Repeat echo on 04/14 shows EF of 35% with global hypokinesis Patient appears hypervolemic She is being diuresed with IV Lasix daily. Blood Donor Recruiter Supervisor increased dosing to IV twice daily. Low-sodium diet Strict I's and O's Lisinopril has been held Plan to switch to Entresto during this hospitalization Patient has been started on spironolactone Metoprolol has been increased to 150 twice daily (3) DM2 (diabetes mellitus, type 2): Plan: - hemoglobin a1c= 11 01/2024; repeat A1c came back at 12.1 - hold glimepiride, metformin - continue Jardiance Patient has been started on 20 units of Lantus every morning but was slightly on the hyperglycemic side Now on 10 units of Lantus every morning Diabetes education consulted Plan to discharge her on Lantus once daily dosing, Jardiance, metformin. Will discontinue glimepiride. Continue to check fingersticks twice per day at home - SSI while IP (4) Transaminitis: Plan: - transaminitis noted during admission 01/2024 at [facility]; AST= 31, ALT= 108, Alk Phos= 176, T Bili= 1 - On admission AST= 168, ALT= 393, Alk Phos= 624, t bili= 1.6 - CT A&P with Hepatic steatosis. Hepatomegaly. Nodular contour of the liver may represent cirrhosis -Amiodarone discontinued due to rising transaminases, improving since then Monitor daily LFTs (5) Elevated troponin: Plan: - troponin 20-> 19 - asymptomatic and without ischemic changes on EKG - likely demand ischemia (6) HLD (hyperlipidemia): Plan: - continue statin, repeat lipid panel (7) Atelectasis: Plan: - CXR with concern for opacity - CT with mild depended atelectasis/small B/L pleural effusions - incentive spirometry - pro leonid pending, no signs of acute infection defer antibiotics at present Plan Diet: DM2, Heart Healthy Dispo: PCU Code: FUll VTE Prophylaxis: Eliquis Admission and Anticipated Discharge Date Admission Date: April 13, 2024 Subjective Patient says she feels well. Denies shortness of breath. Leg swelling is improving. Abdominal bloating sensation has resolved. She does not feel any palpitations. Review of Systems Review of Systems: All systems reviewed & are unremarkable except as noted in Subjective Physical Exam Physical Exam: General: Awake, conversant Heart: S1, S2/regular rate and rhythm, no murmur rubs or gallops Lungs: Diminished breath sounds bilaterally. Normal effort Abdomen: Soft/nontender/nondistended. No hepatosplenomegaly Extremities: No clubbing/cyanosis. Mild bilateral lower extremity edema Behavior: Appropriate, cooperative Results & Data Results & Data Vital Signs (Past 12 Hours) Vital Signs Temp Pulse Pulse Resp BP Pulse Ox O2 Del Method 04/16/24 10:48 36.7 C 125 H 18 137/93 94 Room Air 04/16/24 08:01 36.3 C L 121 H 18 113/81 93 Room Air 04/16/24 07:38 Room Air 04/16/24 07:34 110 H 04/16/24 06:04 36.6 C 116 H 18 117/80 95 Room Air Laboratory Results Abnormal lab results 04/15/24 04/16/24 04/16/24 Range/Units 20:47 05:42 08:01 RDW Std Deviation 63.9 H (36.4-46.3) fL RDW Coeff of Will 18.2 H (11.5-14.5) % BUN/Creatinine Ratio 25.0 H (10-20) Glucose 120 H (70-99(Fasting)) mg/dl POC Glucose 146 H 102 H (70-99) mg/dl Calcium 8.5 L (8.6-10.3) mg/dl Total Bilirubin 1.4 H (0.2-1.0) mg/dl AST 150 H (13-39) U/L ALT 357 H (7-52) U/L Alkaline Phosphatase 684 H (34-104) U/L Total Protein 5.9 L (6.0-8.3) gm/dl Albumin 3.3 L (3.4-5.0) gm/dl 04/16/24 Range/Units 12:05 RDW Std Deviation (36.4-46.3) fL RDW Coeff of Will (11.5-14.5) % BUN/Creatinine Ratio (10-20) Glucose (70-99(Fasting)) mg/dl POC Glucose 163 H (70-99) mg/dl Calcium (8.6-10.3) mg/dl Total Bilirubin (0.2-1.0) mg/dl AST (13-39) U/L ALT (7-52) U/L Alkaline Phosphatase (34-104) U/L Total Protein (6.0-8.3) gm/dl Albumin (3.4-5.0) gm/dl PG Care Time/CCT Total # of Minutes Spent Total Time Spent with Patient: Total time spent is greater than 50% in coordination of care (as documented) at patient's floor/unit and/or counseling patient: Coding Level of Care Code 99937 SUB INP/OBS CARE 2/35MIN Diagnoses Atrial fibrillation with RVR I48.91 HFrEF (heart failure with reduced ejection fraction) I50.20 DM2 (diabetes mellitus, type 2) E11.9 Transaminitis R74.01 Elevated troponin R79.89 HLD (hyperlipidemia) E78.5 Atelectasis J98.11
[2024-04-16] MEDS: FUROSEMIDE 40 MG/4 ML VIAL IV SCH (17:15)
[2024-04-16] MEDS: metFORMIN HCL 500 MG TAB PO SCH (19:42)
[2024-04-16] MEDS: METOPROLOL SUCC 50MG EXT REL TAB PO SCH (20:10)
[2024-04-16] MEDS ORDERED: VALSARTAN/SACUBITRIL 26/24MG TAB PO SCH (21:00)
[2024-04-17 06:10] LABS: Hematocrit (blood only) 43.5 % (37.0-47.0); Hemoglobin 14.5 g/dl (12.0-16.0); Mean Corpuscular Hemoglobin 31.4 pg (25.0-34.0); Mean Corpuscular Hgb Conc 33.3 g/dL (32.0-36.0); Mean Corpuscular Volume 94.2 fL (80.0-100.0); Mean Platelet Volume 10.9 fL (9.4-12.4); Platelet Count 299 K/uL (130-400); RDW Coefficient of Variation 17.5 % (11.5-14.5); RDW Standard Deviation 60.7 fL (36.4-46.3); Red Blood Count 4.62 M/uL (4.20-5.40); White Blood Count 5.29 K/ul (4.8-10.8)
[2024-04-17 06:29] LABS: Albumin Globulin Ratio 1.2 (0.9-2); Albumin Level 3.2 gm/dl (3.4-5.0); BUN Creatinine Ratio 25.6 (10-20); Bilirubin,Total 1.2 mg/dl (0.2-1.0); Calcium 8.8 mg/dl (8.6-10.3); Est GFR (African American) 73.5 ml/min; Est GFR (Non-African American) 63.4 ml/min; Globulin 2.7 gm/dl (2.5-4.0); Total Protein 5.9 gm/dl (6.0-8.3)
--- NOTE | 2024-04-17 12:22 | Cardiology Progress Note ---
Date of Service April 17, 2024 Assessment & Plan (1) Atrial fibrillation with RVR: (2) HFrEF (heart failure with reduced ejection fraction): (3) Elevated troponin: (4) Cardiomyopathy: (5) Mitral regurgitation: Plan ASSESSMENT/PLAN: 1. Atrial fibrillation with rapid ventricular response: Persistent. Reverted to A-fib rather quickly after DC cardioversion x 4 at [facility]. Apparently was rate controlled with amiodarone, digoxin, and beta-aundrea but amiodarone since discontinued by PCP according to family. Given undetectable digoxin level, wonder if she was taking medications appropriately as she does not recall her medications and has poor memory. Amiodarone discontinued here due to elevated and upward trending transaminase levels while on amiodarone. Transaminase levels have since trended downward. Increased metoprolol to succinate to 200 mg twice daily. Heart rate improved but not optimal. Recommend electrophysiology evaluation. She follows with electrophysiology, Dr. Rosas. Could consider a fib ablation versus AV katy ablation and pacemaker placement. A-fib ablation is not an option here although AV katy ablation with pacemaker placement is. She very much wants to go home. Recommend close follow-up with her primary covered buckle assembler in the next 1 to 2 weeks to make definitive plans. Continue anticoagulation for stroke risk reduction. 2. Chronic heart failure with reduced EF: Diuresed -5.7 L yesterday. If she goes home today, recommend increasing outpatient Lasix to a total of 120 mg daily. Basic metabolic panel within 1 week and close follow-up with her monorail operator. Low-sodium diet. Strict I's and O's while hospitalized. Daily weights. Weight trending downward. Continue SGLT2 inhibitor. Lisinopril was held on presentation. Start low-dose Entresto today. Spironolactone initiated this hospital stay. Continue metoprolol succinate. Start low-dose Entresto. 3. Cardiomyopathy: May be related to tachycardia given recent issues with uncontrolled A-fib with RVR. Will attempt to achieve rate control. Admitting records document that she is to undergo cardiac MRI to evaluate for amyloidosis through her primary monorail operator. If LV systolic function does not improve above 35% EF on optimal medical therapy and rate control (after 3 months of therapy), consider ICD for primary prevention. 4. Mitral regurgitation: Moderate. Monitor over time. 5. Elevated troponin: Likely due to demand ischemia in the setting of A-fib with RVR and heart failure. Peak troponin was 20.8. She did not present with acute coronary syndrome. Management as above. 6. Type 2 diabetes: Poorly controlled. Management as per primary hospitalist service. 7. Hypokalemia: Potassium supplementation as necessary. Spironolactone initiated. 8. Elevated transaminase levels: Elevated on presentation and worsened with amiodarone. Amiodarone discontinued and transaminase levels are trending downward. Further evaluation as per primary hospitalist service. 9. Disposition: Patient adamantly wants to go home today. Heart rate better but not optimal. She is sedentary and should tolerate heart rates 100-120s for the time being. Recommend close follow-up with her primary monorail operator and covered buckle assembler for definitive plans such as AV katy ablation and pacemaker versus atrial fibrillation ablation. Multiple attempts to call her son, German. Was able to discuss with him just minutes ago the plans. He works with her cardiology group and plans on getting things in motion. Recommend basic metabolic panel in the next 3 to 5 days given medication changes and close follow-up with her PCP/primary monorail operator for her heart failure management as well. If for what ever reason she is unable to be seen by electrophysiology, German was notified that he could contact this facility to be seen by electrophysio logy soon. Patient care discussed with primary hospitalist, Dr. Tavarez. Admission and Anticipated Discharge Date Admission Date: April 13, 2024 Subjective Patient seen this afternoon. Her breathing is back to baseline. She denies shortness of breath. She was laying flat in bed without orthopnea. She denies chest pain, syncope, near syncope, palpitations. Her edema has improved. She very much wants to go home today. She was unaccompanied. Physical Exam Physical Exam: Gen.: No acute distress. Alert. HEENT: Anicteric sclera. Neck: No significant JVD. Cardiac: No ventricular heave. Irregularly irregular and tachycardic (low 100s bpm). Normal S1-S2. 1/6 systolic murmur. Pulmonary: Clear to auscultation bilaterally without wheezes, rales, or rhonchi. Abdomen: Soft, nontender, nondistended, with normoactive bowel sounds. No bruits noted. Extremities: 2+ radial pulses bilaterally. 2+ posterior tibialis pulses bilaterally. Trace left lower extremity edema. Psychiatric: Affect appears appropriate. Results & Data Vital Signs (Past 12 Hours) Vital Signs Temp Pulse Pulse Resp BP Pulse Ox Pulse Ox 04/17/24 11:32 36.5 C 120 H 19 119/78 94 04/17/24 08:15 128 H 04/17/24 07:10 36.4 C L 120 H 19 134/106 H 96 04/17/24 05:00 95 04/17/24 03:46 36.7 C 104 H 18 144/87 H 94 O2 Del Method O2 Del Method 04/17/24 11:32 Room Air 04/17/24 08:15 04/17/24 07:10 Room Air 04/17/24 05:00 Room Air 04/17/24 03:46 Room Air Intake & Output 04/15/24 04/16/24 04/17/24 04/18/24 06:59 06:59 06:59 06:59 Intake Total 378.255 / 649.326 3609 / 1400 2560 / 2560 Output Total 8250 / 8250 Balance 378.255 / 016.237 6767 / 1400 -5690 / -5690 Weight 204 lb 5.896 oz 201 lb 0.985 oz 188 lb 14.978 oz Laboratory Results Laboratory Results - last 24 hr 04/16/24 04/16/24 04/17/24 17:11 20:05 05:20 WBC 5.29 RBC 4.62 Hgb 14.5 Hct 43.5 MCV 94.2 MCH 31.4 MCHC 33.3 RDW Std Deviation 60.7 H RDW Coeff of Will 17.5 H Plt Count 299 MPV 10.9 Sodium 139 Potassium 4.0 Chloride 99 Carbon Dioxide 33 H Anion Gap 7 BUN 23 Creatinine 0.90 Est Cr Clr Drug Dosing 59.0 Est GFR ( Amer) 73.5 Est GFR (Non-Af Amer) 63.4 BUN/Creatinine Ratio 25.6 H Glucose 184 H POC Glucose 204 H 242 H Calcium 8.8 Total Bilirubin 1.2 H AST 79 H ALT 264 H Alkaline Phosphatase 564 H Total Protein 5.9 L Albumin 3.2 L Globulin 2.7 Albumin/Globulin Ratio 1.2 04/17/24 04/17/24 08:00 11:47 WBC RBC Hgb Hct MCV MCH MCHC RDW Std Deviation RDW Coeff of Will Plt Count MPV Sodium Potassium Chloride Carbon Dioxide Anion Gap BUN Creatinine Est Cr Clr Drug Dosing Est GFR ( Amer) Est GFR (Non-Af Amer) BUN/Creatinine Ratio Glucose POC Glucose 152 H 222 H Calcium Total Bilirubin AST ALT Alkaline Phosphatase Total Protein Albumin Globulin Albumin/Globulin Ratio Diagnostic Findings Telemetry personally reviewed: Atrial fibrillation with heart rates mostly 100-1 20s. Labs reviewed from 04/17/2024 notable for downward trending transaminase levels, stable renal function, normal potassium, normal blood counts. Medications Administered Current Inpatient Medications Albuterol (Albuterol Hfa 8 Gm Inhaler) 2 puffs INH Q6H PRN PRN Reason: Wheezing Stop: 05/14/24 02:25 Apixaban (Apixaban 5 Mg Tablet) 5 mg PO BID [facility] Stop: 05/14/24 02:25 Last Admin: 04/17/24 09:42 Dose: 5 mg Dextrose (Dextrose 50% 50 Ml Syringe) 25 - 50 ml IV UD PRN; Protocol PRN Reason: Hypoglycemia Protocol Stop: 05/14/24 02:25 Digoxin (Digoxin 0.25 Mg Tab) 0.25 mg PO DAILY@1600 [facility] Stop: 05/14/24 15:59 Last Admin: 04/16/24 17:15 Dose: 0.25 mg Empagliflozin (Empagliflozin 25 Mg Tab) 25 mg PO QAM [facility] Stop: 05/14/24 08:59 Last Admin: 04/17/24 09:43 Dose: 25 mg Furosemide (Furosemide 40 Mg/4 Ml Vial) 40 mg IV BID17 [facility] Stop: 05/16/24 16:59 Last Admin: 04/17/24 09:44 Dose: 40 mg Glucagon (Glucagon For Inj 1 Mg Vial) 1 mg SQ UD PRN; Protocol PRN Reason: Hypoglycemia Protocol Stop: 05/14/24 02:25 Glucose (Glucose 40% Gel 15 Gm Tube) 15 - 30 gm PO UD PRN; Protocol PRN Reason: Hypoglycemia Protocol Stop: 05/14/24 02:25 Glucose (Glucose 10 Tab/Tube) 4 - 8 tab PO UD PRN; Protocol PRN Reason: Hypoglycemia Treatment Stop: 05/14/24 02:25 Insulin Aspart (Insulin Aspart Per Unit Charge) 0 units SC [facility]; Protocol Stop: 05/14/24 02:44 Last Admin: 04/16/24 09:02 Dose: Not Given Insulin Glargine (Lantus Per Unit Charge) 10 units SQ DAILY [facility] Stop: 05/16/24 08:59 Last Admin: 04/17/24 09:49 Dose: 10 units Melatonin (Melatonin 3 Mg Tab) 3 mg PO HS PRN PRN Reason: Sleep Stop: 05/16/24 00:16 Last Admin: 04/16/24 00:51 Dose: 3 mg Metformin HCl (Metformin Hcl 500 Mg Tab) 500 mg PO BIDM [facility] Stop: 05/16/24 17:59 Last Admin: 04/17/24 09:43 Dose: 500 mg Metoprolol Succinate (Metoprolol Succ 50mg Ext Rel Tab) 200 mg PO BID [facility] Stop: 05/16/24 20:59 Last Admin: 04/17/24 09:44 Dose: 200 mg Miscellaneous (Carbohydrates For Hypoglycemia ) 15 - 30 gm PO UD PRN PRN Reason: Hypoglycemia Protocol Stop: 05/14/24 02:25 Paroxetine HCl (Paroxetine Hcl 10 Mg Tab) 10 mg PO QAM [facility] Stop: 05/14/24 08:59 Last Admin: 04/17/24 09:46 Dose: 10 mg Spironolactone (Spironolactone 25 Mg Tab) 25 mg PO QAM [facility] Stop: 05/15/24 08:59 Last Admin: 04/17/24 09:45 Dose: 25 mg PG Care Time/CCT Total # of Minutes Spent Total Time Spent with Patient: Total time spent is greater than 50% in coordination of care (as documented) at patient's floor/unit and/or counseling patient: Coding Level of Care Code 88767 SUB INP/OBS CARE 3/50MIN Diagnoses Atrial fibrillation with RVR I48.91 HFrEF (heart failure with reduced ejection fraction) I50.20 Elevated troponin R79.89 Cardiomyopathy I42.9 Mitral regurgitation I34.0
--- NOTE | 2024-04-17 14:46 | Discharge Summary ---
Date of Service April 17, 2024 Admission HPI Per Admitting Provider 74 year old female with a past medical history of breast cancer (completed treatment 11/2023), paroxysmal afib, DM2 presenting with afib with RVR. Noted increased dyspnea over the past 2 days. Son noted LE edema yesterday. Denies chest pain, nausea/vomiting. Notes that she believes that she forgot to take her medications this morning. Admitted at [facility] for afib with RVR. Was started on IV Lopressor and Cardizem gtt, unsuccessful in controlling rates. DCCV x 4, briefly converted to NSR but then back to afib RVR. Started on amiodarone gtt and converted to oral dosing. Adding digoxin and metoprolol. Echo initially with EF 30-35%. Repeat after improvement in hearts rates with EF= 40-45%, LA thickening and recommenced OP cardiac MRI to r/u amyloidosis. Ultimately she was discharged on: a tapering dose of amiodarone 400mg BID x 2 weeks, 200mg BID x 2 weeks, 200mg daily there forward. Digoxin 250mcg daily. Metoprolol succinate 100mg BID. Eliquis 5mg BID. Is supposed to f/u with Dr. Rosas, EP as an OP for consideration of ablation. In the ED: Was given 5mg IV Lopressor x 2, Cardizem 10mg and started on Cardizem gtt. Admission Exam Per Admitting Provider Constitutional: well-appearing, no acute distress HEENT: NCAT, no conjunctival injection CV: irregular rate and rhythm, no murmur appreciated, extremities well-perfused, no LE edema Resp: CTABL, no wheezes/rales/rhonchi appreciated, no increased work of breathing GI: soft, nondistended, nontender MSK: no gross deformities appreciated Skin: warm, dry, no rash appreciated Neuro: alert, oriented, no focal neurologic deficit appreciated Principal Diagnosis Rapid atrial fibrillation Acute systolic CHF Cardiomyopathy Uncontrolled diabetes Discharge Exam General: Awake, conversant Heart: S1, S2/regular rate and rhythm, no murmur rubs or gallops Lungs: Diminished breath sounds bilaterally. Normal effort Abdomen: Soft/nontender/nondistended. No hepatosplenomegaly Extremities: No clubbing/cyanosis. Mild bilateral lower extremity edema Behavior: Appropriate, cooperative Discharge Data Allergies Allergy/AdvReac Type Severity Reaction Status Date / Time No Known Allergies Allergy Verified 04/13/24 17:43 Consultations 04/13/24 21:10 ED Decision to Admit Stat 04/14/24 08:19 Consult Cardiology Routine 04/17/24 03:59 Consult Patient Rep [Consult Patient Services] Routine Ordered Studies 04/13/24 19:10 CT Abd and Pelvis [CT abd pelvis IV con only] Stat Hospital Course (1) Atrial fibrillation with RVR: - Afib with RVR with rates in the 160s on presentation -Patient was on amiodarone drip which was discontinued due to rising transaminases Undetectable digoxin level. Most likely she has not been on digoxin at home. Continue digoxin Enginehouse Brakeman increased the dose of metoprolol to 200 mg twice daily to achieve better rate control. Continue Eliquis Treat heart failure Continue to hold amlodipine and lisinopril Patient has been cleared for discharge by cardiology today. The plan is for the patient to meet with EP corn popper in 1 to 2 weeks for definitive plan of A-fib ablation versus AV katy ablation and pacemaker management. (2) HFrEF (heart failure with reduced ejection fraction): - Echo from 01/2024 initially with EF 30-35%. Repeat after improvement in hearts rates with EF= 40-45%, LA thickening -Repeat echo on 04/14 shows EF of 35% with global hypokinesis Patient appears hypervolemic She is being diuresed with IV Lasix daily. Enginehouse Brakeman increased dosing to IV twice daily. Per corn popper recommendation, will discharge on 60 mg of Lasix twice daily Low-sodium diet On metoprolol succinate, spironolactone. Entresto has been started Check BMP in 3 to 5 days following discharge. Results will be sent to PCP and EP corn popper Lisinopril has been discontinued (3) DM2 (diabetes mellitus, type 2): - hemoglobin a1c= 11 01/2024; repeat A1c came back at 12.1 - hold glimepiride, metformin - continue Jardiance Patient has been started on 20 units of Lantus every morning but was slightly on the hyperglycemic side Now on 10 units of Lantus every morning Diabetes education consulted Plan to discharge her on Lantus once daily dosing, Jardiance, metformin. Will discontinue glimepiride. Continue to check fingersticks twice per day at home (4) Transaminitis: - transaminitis noted during admission 01/2024 at [facility]; AST= 31, ALT= 108, Alk Phos= 176, T Bili= 1 - On admission AST= 168, ALT= 393, Alk Phos= 624, t bili= 1.6 - CT A&P with Hepatic steatosis. Hepatomegaly. Nodular contour of the liver may represent cirrhosis -Amiodarone discontinued due to rising transaminases, improving since then (5) Elevated troponin: - troponin 20-> 19 - asymptomatic and without ischemic changes on EKG - likely demand ischemia (6) HLD (hyperlipidemia): - continue statin, repeat lipid panel (7) Atelectasis: - CXR with concern for opacity - CT with mild depended atelectasis/small B/L pleural effusions - incentive spirometry - pro leonid pending, no signs of acute infection defer antibiotics at present Plan Spoke to the corn popper who cleared the patient for discharge today. Spoke to the patient and the son in detail. Discharge to home today Total Time Total Time Spent Total Time Spent (In Minutes): 35 Discharge Plan Discharge Items Patient Disposition: Home - Self-Care Reason For Visit: AFIB RVR Discharge Diagnosis: Rapid atrial fibrillation Acute systolic CHF Cardiomyopathy Uncontrolled diabetes Activity: Resume your previous activity Non-emergency contact: Primary Care Provider Call non-emergency contact if: you have any medication questions and your symptoms worsen Follow-up/Referrals: Flako Rosas DO [Outside Practitioners] - Leno Murillo PA-C [Primary Care Provider] - Diet: Carb Consistent or DM2, Heart Healthy and Low Sodium (2gm) Ambulatory Orders: Basic Metabolic Panel (Routine) Timeframe: 5 Days Location: Determined by Patient Ordered By: Unique Brown Attending Provider Instructions: Advised to follow-up with PCP in 1 week Advised to follow-up with Dr. Rosas (EP corn popper) in 1 to 2 weeks Advised to note that you were found to have rapid atrial fibrillation for which you are being discharged on metoprolol 200 mg twice daily. You will need to see your EP corn popper in 1 to 2 weeks for definitive plans (atrial fibrillation ablation versus AV katy ablation with pacemaker placement) Advised to note that you were thought to be in heart failure. You are going to be discharged on a higher dose of Lasix 60 mg twice daily. Lisinopril has been discontinued. Spironolactone and Entresto have been added. You will need blood work done within 3 to 5 days, to be followed up on by your primary care physician or your EP corn popper. Your diabetes is uncontrolled. Your A1c was 12. You will need to be discharged on insulin. I plan to discharge you on Lantus 10 units, metformin, Jardiance. Glipizide has been discontinued. You have been on this regimen while on this hospital stay and it has not worked so far. You will need to follow-up with your PCP to see if the doses need to be further adjusted. Advised to note that you are heart rate is still not very well-controlled. Advised to take it easy in the next few days until seen by corn popper and to avoid overexertion. Pending Studies at Discharge: No Stand-Alone Forms: My [facility] Medications and DC Order Prescriptions: New (DME) pen needle, diabetic [Pen Needle] 32 gauge x 5/32" needle See Rx Instructions .Route Qty: 50 0RF Rx Instructions: As directed metoprolol succinate 50 mg Tablet Extended Release 24 Hr 200 mg PO BID 30 Days Qty: 240 0RF spironolactone 25 mg Tablet 25 mg PO QAM 30 Days Qty: 30 0RF furosemide [Lasix] 40 mg tablet 60 mg PO BID 30 Days Qty: 90 0RF insulin glargine [Lantus Solostar U-100 Insulin] 100 unit/mL (3 mL) insulin pen 10 unit subcut DAILY Qty: 3 0RF Entresto 24-26 mg tablet 1 tab PO BID Qty: 60 0RF Continued metformin 500 mg Tablet 500 mg PO BIDM paroxetine HCl [Paxil] 10 mg Tablet 10 mg PO QAM atorvastatin [Lipitor] 10 mg Tablet 10 mg PO HS digoxin 250 mcg (0.25 mg) Tablet 250 mcg PO QAM albuterol sulfate 90 mcg/actuation Hfa Aerosol Inhaler 2 puff INHALATION Q6H PRN (Reason: Wheezing) Eliquis 5 mg Tablet 5 mg PO BID Probiotic 5 billion cell Capsule, Sprinkle 1 cap PO DAILY Jardiance 25 mg Tablet 25 mg PO QAM Discontinued furosemide [Lasix] 40 mg Tablet 40 mg PO QAM lisinopril 20 mg Tablet 20 mg PO QAM metoprolol succinate 100 mg Tablet Extended Release 24 Hr 100 mg PO BID amlodipine 5 mg Tablet 5 mg PO QAM glimepiride 4 mg Tablet 4 mg PO QAM Rx Instructions: administer with breakfast Discharge Orders: Discharge Order- CHF (Routine); Ordered 04/17/24 Ordered By: Unique Tavarez Admission Data Admit Date/Time: 04/13/24 21:27 Attending Provider: Unique Tavarez Admit Provider: Beverly Oleary Primary Care Provider: Leno Murillo Other Providers: Brooks Zaldivar; Franco Mehta Other Interventions: Discharge Summary Assessment (RN) Last Done: 04/17/24 15:26 Coding Level of Care Code 52057 INP/OBS DISCH >30 MIN Diagnoses Atrial fibrillation with RVR I48.91 HFrEF (heart failure with reduced ejection fraction) I50.20 DM2 (diabetes mellitus, type 2) E11.9 Transaminitis R74.01 Elevated troponin R79.89 HLD (hyperlipidemia) E78.5 Atelectasis J98.11
[2024-04-17] MEDS ORDERED: VALSARTAN/SACUBITRIL 26/24MG TAB PO SCH (21:00)
== END 2024-04-17 17:21 | disposition home or self-care (01) | DRG 309 ==
LOC: ED 16:45 → SUATTDRO 21:27 → EDINP 21:27 → 4W 04-14 02:27